=== PATIENT | female | born 1960 | race Caucasian/White ===

== ENCOUNTER → 2024-05-15 | Outpatient (CLI) | payer SELFPAY ==
--- NOTE | 2024-05-15 09:50 | US_ITS ---
PROCEDURE: ULTRASOUND THYROID REASON FOR EXAM: Abnormal parathyroid study. TECHNIQUE: Real-time grayscale and color flow imaging was performed along with routine image documentation. Cine imaging was also performed of the bilateral thyroid lobes. COMPARISON: None. FINDINGS: Right thyroid lobe measures 3.4 x 1.3 x 1.4 cm. Left thyroid lobe measures 3.9 x 1.6 x 1.8 cm. Isthmus thickness is 0.28 cm. Thyroid Size: Normal. Lobulated contour. Background Echotexture: Heterogeneous Thyroid Nodules: Bilateral. Right NODULE: Inferior pole, solid, 0.6 x 0.6 x 0.7 cm, well-circumscribed, hyperechoic, rounded, no calcifications, TR 3. Left NODULE: Inferior pole, mixed cystic and solid, 0.7 x 0.7 x 0.5 cm, well- circumscribed, mixed hypoechoic and anechoic, wider than tall, no calcifications, TR 2. US/Thyroid IMPRESSION: A TR 3 category micronodule in the right inferior pole. No FNA warranted. A TR 2 category micronodule in the left inferior pole. No FNA warranted. A small hypoechoic micronodule inferior to the left thyroid lobe measuring 0.6 cm may represent small lymph node. Follow-up ultrasound recommended in 12 months. Reading Location: [place] [id number]
--- NOTE | 2024-05-15 09:50 | NM_ITS ---
PROCEDURE: PARATHYROID SCAN REASON FOR EXAM: Hypercalcemia. COMPARISON: None. TECHNIQUE: 25 mCi of sestamibi were given intravenously. Imaging of the parathyroid gland was obtained. FINDINGS: Thyroid bed: Activity present Persistent uptake is seen inferior to the left lobe of the thyroid. This may represent a parathyroid adenoma. NM/Parathyroid Scan IMPRESSION: Increased uptake along the inferior aspect of the left lobe of the thyroid. Th is is also present on the delayed imaging suggestive of adenoma. Reading Location: [id number]
== END | disposition home or self-care (01) ==
PROVIDERS: PCP Nurse Practitioner Family; Referring Provider Internal Medicine Endocrinology, Diabetes & Metabolism; Visit Provider Internal Medicine Endocrinology, Diabetes & Metabolism
DX: D35.1 Benign neoplasm of parathyroid gland (principal)
CPT/HCPCS: 76536; 78070; A9500

== ENCOUNTER 2025-01-28 05:44 | Day surgery (SDC) | payer SELFPAY, OTHER ==
[2025-01-28] VITALS (15 sets, daily range): BP systolic 125–160; BP diastolic 70–98; PULSE 56–71; RESP 14–16; TEMP 36.3–36.9; O2SAT 91–100; BMI 27.8
--- OUTSIDE RECORDS SUMMARY | 2025-01-28 05:52 | XMS RPT_ITS | CCD ---
Author Organization [facility] ion [facility] Care Team Providers Care Director Of Parks And Recreation Name Role Phone QUIQUE CARMICHAEL-GABY Lang Unavailable [phone] JO-ANN JEAN Unavailable Unavailable KRISTIAN PURDY, JAQUELINE Vega Unavailable ALEX PURDY, ZULAY Mejias Unavailable [phone] MD Unavailable SHARAD GAUTHIER Unavailable Unavailable Power ANDERS, Dee Unavailable Unavailable SHANIKA LOPES Unavailable Unavailable Unavailable Unavailable GINA HERMAN MD Unavailable GABY WALLACE Unavailable Unav SACHI Álvarez MD Unavailable HEATHER STRE[address] MD Unavailable STACEY ANDERS, ALEJANDRA Unavailable Unavaila ble Quique GAITAN-Gaby Lang Primary Care Provider Gaby Gordon Referring Provider Dr. Gina Herman MD Attending Provider Dr. Gina Herman MD Referring Provider FELICITY DREW Unavailable Dr. Mita Mujica MD Attending Provider Sahci Montoya MD Primary Care Provider Sachi Montoya MD Referring Provider [phone] Mita Mujica MD Attending Physician Sachi Montoya MD Primary Care Physician Gina Herman Attending Unavailable Gina Herman Referring Unavailable Quique CASH ANALYST, Gaby Primary Care Unavailab Amo, [place] Primary Care Unavailable Mita Mujica Attending Unavailable Gina Herman Attending Unavailable Quique CASH ANALYST, Gaby Primary Care Unavailab le [place] CASH ANALYST, Gaby Referring Unavailab le [place], [place] Primary Care Unavailable [place], [place] Referring Unavailable Mita Mujica Attending Unavailable [place], [place] Primary Care Unavailable [place], [place] Referring Unavailable Mita Mujica Attending Unavailable SACHI MONTOYA MD Consulting Unavailable CAYDEN ODEN MD Primary Care Unavailable CAYDEN ODEN MD Attending Unavailable CAYDEN ODEN MD Admitting Unavailable PROVIDER, UNKNOWN Consulting Unavailable PROVIDER, UNKNOWN Consulting Unavailable MITA MUJICA MD Primary Care Unavailable MITA MUJICA MD Attending Unavailable MITA MUJICA MD Admitting Unavailable SACHI MONTOYA MD Consulting Unavailable PROVIDER, UNKNOWN Consulting Unavailable PROVIDER, UNKNOWN Consulting Unavailable HEATHER STREET Primary Care Unavailable HEATHER STREET Attending Unavailable HEATHER STREET Admitting Unavailable GABY OWEN NP Consulting Unavailab le PROVIDER, UNKNOWN Consulting Unavailable PROVIDER, UNKNOWN Consulting Unavailable GINA HERMAN MD Admitting Unavailable GINA HERMAN MD Primary Care Unavailable GINA HERMAN MD Attending Unavailable GABY OWEN CASH ANALYST Consulting Unavailab le PROVIDER, UNKNOWN Consulting Unavailable PROVIDER, UNKNOWN Consulting Unavailable GINA HERMAN MD Admitting Unavailable GINA HERMAN MD Primary Care Unavailable GINA HERMAN MD Attending Unavailable GABY OWEN NP Consulting Unavailab le PROVIDER, UNKNOWN Consulting Unavailable PROVIDER, UNKNOWN Consulting Unavailable GINA HERMAN MD Admitting Unavailable GINA HERMAN MD Primary Care Unavailable GINA HERMAN MD Attending Unavailable GABY OWEN CASH ANALYST Consulting Unavailab le PROVIDER, UNKNOWN Consulting Unavailable PROVIDER, UNKNOWN Consulting Unavailable GINA HERMAN MD Primary Care Unavailable GINA HERMAN MD Attending Unavailable SACHI MONTOYA MD Consulting Unavailable GINA HERMAN MD Admitting Unavailable EMILY MCKINNEY Referring Unavailable PROVIDER, UNKNOWN Consulting Unavailable PROVIDER, UNKNOWN Consulting Unavailable Allergies Allergy Classification Reported Allergen(s) Allergy Type Date of Onset Reaction(s) Facility (10 sources) Amoxicillin Drug Allergy 01-03-2024 Rash [facility] (1 source) Amoxicillin Drug Allergy 01-14-2025 [facility] Repository (1 source) Amoxicillin Drug Allergy [facility] Repository Medications Current Medications Medication Drug Class(es) Dates Sig (Normalized) Sig (Original) amLODIPine mg oral tablet (6 sources) Dihydropyridine Calcium Channel Andi Start: 11-05-2024 amLODIPine 10 mg tablet ; 1/2 (one half) Tablet daily for 180 days Quantity: 90 {Tablet} Refills: 0 Ordered: 05-Nov-2024 MD SACHI MONTOYA Start: 05-Nov-2024 Comments: medication to be dispensed in office Comment on above: medication to be dis pensed in office Multivitamin tablet (3 sources) Start: 02-18-2024 Start: 02-18-2024 Multivitamin t ablet Active 1 {tbl} PO EVERY MORNING February 18, 2024 1:00am redox (1 source) Start: 01-02-2025 sulfurzyme (3 sources) Start: 02-18-2024 Start: 02-18-2024 sulfurzyme Act judith PO February 18, 2024 1:00am wolfberry (3 sources) Start: 02-18-2024 Start: 02-18-2024 wolfberry Acti ve PO February 18, 2024 1:00am young living ninja red (1 source) Start: 01-02-2025 Completed/Discontinued Medications Medication Drug Class(es) Dates Sig (Normalized) Sig (Original) Celspar 360mg (3 sources) Start: 01-03-2024 End: 02-18-2024 take 360 mg by mouth once daily Celspar 360mg Discontinued 1 {tbl} PO DAILY January 03, 2024 12:00am February 18, 2024 9:00am ciprofloxacin 500 mg oral tablet (20 sources) Quinolone Antimicrobial Start: 03-09-2021 End: 03-16-2021 take 1 tablet by mouth twice daily Cipro 500 MG Oral Tablet ; 1 (one) Tablet two times daily for 7 days Quantity: 14 {Tablet} Refills: 0 Ordered: 31-Mar-2021 GORDO OWEN Start: 09-Mar-2021 End: 16-Mar-2021 Status: Inactive estrogens, conjugated (care home) 0.625 mg/ml vaginal cream (20 sources) Estrogen Start: 12-15-2011 End: 04-30-2012 PREMARIN, 0.625MG/GM (Vaginal Cream) ; 1 gm pv for 0 days Quantity: 1 {Cream} Refills: 5 Ordered: 30-Apr-2012 Start: 15-Dec-2011 End: 30-Apr-2012 Status: Inactive Comments: start daily for 1 week then if working decrease to twice a week and gradually wean off over 6 months. Comment on above: start daily for 1 we ek then if working decrease to twice a week and gradually wean off over 6 months. fluconazole 100 mg oral tablet (20 sources) Azole Antifungal Start: 04-30-2012 End: 05-07-2012 take 1 tablet by mouth once daily DIFLUCAN, 100MG (Oral Tablet) ; 1 (one) Tablet daily for 7 days Quantity: 7 {Tablet} Refills: 0 Ordered: 04-Aug-2013 MD ZULAY MUÑOZ Start: 30-Apr-2012 End: 07-May-2012 Status: Inactive Start: 12-15-2011 End: 04-30-2012 take 1 tablet by mouth once DIFLUCAN, 150MG (Oral Tabl et) ; one Tab one time dose for 1 days Quantity: 1 {Tab} Refills: 1 Ordered: 30-Apr-2012 Start: 15-Dec-2011 End: 30-Apr-2012 Status: Inactive hydrocortisone 10 mg/ml / neomycin 3.5 mg/ml / polymyxin b 17388 unt/ml otic suspension (7 sources) Aminoglycoside Antibacterial, Polymyxin-class Antibacterial, Corticosteroid Start: 08-18-2024 End: 08-23-2024 ypsbjqzr-orpvkysdw-dmhrrazsb 3.5 mg-10,000 unit/mL-1 % ear drops,susp ; 4 drops TID x5 days for 5 days Quantity: 10 {Milliliter} Refills: 0 Ordered: 31-Oct-2024 GORDO RODGERS Start: 18-Aug-2024 End: 23-Aug-2024 Status: Inactive nystatin 919284 unt/ml / triamcinolone acetonide 1 mg/ml topical cream (20 sources) Polyene Antifungal, Corticosteroid Start: 04-30-2012 End: 05-07-2012 NYSTATIN-TRIAMCINOLONE, 162790-6.1UNIT/GM-% (External Cream) ; 1 (one) Cream two times daily for 7 days Quantity: 1 {tube(s)} Refills: 0 Ordered: 04-Aug-2013 MD ZULAY MUÑOZ Start: 30-Apr-2012 End: 07-May-2012 Status: Inactive Comments: meds to be dispensed in office Comment on above: meds to be dispensed in office OMEGA 3, 1000MG (Oral Capsule) (20 sources) take 1 capsule by mouth once daily OMEGA 3, 1000MG (Oral Capsule) ; 1 Daily (1000 MG) Status: Inactive polymyxin b 44858 unt/ml / trimethoprim 1 mg/ml ophthalmic solution (20 sources) Dihydrofolate Reductase Inhibitor Antibacterial, Polymyxin-class Antibacterial Start: 02-21-2021 End: 02-28-2021 take 4 drop(s) into the eye(s) four times daily Polymyxin B-Trimethoprim 74482-7.1 UNIT/ML-% Ophthalmic Solution ; 4 drops in affected ear four times daily for 7 days Quantity: 1 {Each} Refills: 0 Ordered: 08-Mar-2021 GORDO OWEN Start: 21-Feb-2021 End: 28-Feb-2021 Status: Inactive Comments: medication to be dispensed in office Comment on above: medication to be dis pensed in office sulfamethoxazole 800 mg / trimethoprim 160 mg oral tablet (20 sources) Dihydrofolate Reductase Inhibitor Antibacterial, Sulfonamide Antimicrobial Start: 05-17-2015 End: 05-27-2015 take 1 tablet by mouth twice daily BACTRIM DS, 800-160MG (Oral Tablet) ; 1 (one) Tablet two times daily for 10 days Quantity: 20 {Tablet} Refills: 0 Ordered: 06-Jun-2016 MD JAQUELINE TOWNSEND Start: 17-May-2015 End: 27-May-2015 Status: Inactive Comments: medication to be dispensed in office Comment on above: medication to be dis pensed in office Problems Active Problems Problem Classification Problem Date Documented Date Episodic/Chronic Administrative/socia l admission (20 sources) Patient encounter status; Translations: [Counseling, unspecified] 04-18-2023 Episodic Essential hypertension (20 sources) Essential hypertension; Translations: [Essential (primary) hypertension] 11-05-2024 Chronic Comment on above: Begin amlodipine, LM discussed Genitourinary symptoms and ill-defined conditions (20 sources) Increased frequency of urination; Translations: [Frequency of micturition] 02-21-2021 Episodic Heart valve disorders (12 sources) Heart murmur; Translations: [Cardiac murmur, unspecified] 11-05-2024 Episodic Immunizations and screening for infectious disease (20 sources) Requires diphtheria, tetanus and pertussis vaccination; Translations: [Encounter for immunization] 08-22-2011 Episodic Inflammatory diseases of female pelvic organs (20 sources) Vaginitis; Translations: [Acute vaginitis] 12-15-2011 Episodic Mycoses (20 sources) Otomycosis; Translations: [Superficial mycosis, unspecified] 03-09-2021 Episodic Nonmalignant breast conditions (20 sources) Abscess of breast; Translations: [Abscess of the breast and nipple] 04-18-2023 Episodic Nutritional deficiencies (20 sources) Vitamin D deficiency; Translations: [Vitamin D deficiency, unspecified] 04-18-2024 Chronic Other and unspecified benign neoplasm (1 source) Benign neoplasm of parathyroid gland; Translations: [Benign neoplasm of parathyroid gland] Onset: Episodic Other circulatory disease (20 sources) Elevated blood-pressure reading without diagnosis of hypertension; Translations: [Elevated blood-pressure reading, without diagnosis of hypertension] 02-21-2021 Episodic Other ear and sense organ disorders (14 sources) Impacted cerumen in right ear; Translations: [Impacted cerumen, right ear] 08-18-2024 Episodic Other endocrine disorders (20 sources) Hyperparathyroidism; Translations: [Hyperparathyroidism, unspecified] 03-17-2024 Chronic Comment on above: Seeing endo Other endocrine disorders (3 sources) Primary hyperparathyroidism; Translations: [Primary hyperparathyroidism] 01-02-2025 Chronic Comment on above: Patient is 63-year-o ld female who presents for surgical consultation related to a diagnosis of primary hyperparathyroidism. After careful review of her outside records and eliciting a thorough history during today's visit I concur with the diagnosis of primary hyperparathyroidism. Through her history it appears she is virtually asymptomatic from this condition. She is reporting some depression, but appears to have a more proximal cause through her social stressors. When I assess her for surgical indications given asymptomatic primary hyperparathyroidism I find only 1 calcium level that fulfills criteria of being 1 mg/dL or more over the range of normal. She has no evidence of bone demineralization or kidney stones. Initially, her urinary calcium was not available to me but outside records were later uncovered that showed this to be elevated at 477. Therefore, given this very borderline picture I recommended repeating the 24-hour urine calcium and if this remains significantly elevated would likely recommend proceeding with parathyroidectomy. However, if this is repeated and found to be within normal limits would likely recommend additional surveillance. Mr. Gauthier declares they would like to avoid surgery if at all possible, but are willing to proceed if indicated. Positively, if we do elect to proceed with surgery patient appears to have not only localization but Co- localization of her ultrasound and sestamibi imaging which suggest a left inferior parathyroid adenoma.Update 01/02/2025: Discussed results of recent 24-hour urinary calcium testing that returned 507 up from 477 previously. I stated that this result taken together with her history of hypercalcemia places her squarely in the position to recommend surgical parathyroidectomy. I stated that my intent was to help mitigate Mrs. Gauthier's risk for nephrolithiasis as well as pathologic wear/demineralization of her skeletal mass over time. A hand-drawn schematic was used to illustrate the steps of the procedure including a explanation on the use of intraoperative PTH monitoring to verify cure. I also explained how this has implications for the extent and duration of the procedure if the PTH does not come down appropriately to meet criteria. I shared how this could have implications both for patient's postoperative disposition as well as her need for postoperative medication. I then immediately followed this with a discussion of procedure specific risks including discussions on hypoparathyroidism and recurrent laryngeal nerve injury. I shared about my routine use of intraoperative nerve monitoring to minimize the risk of the latter issue. Patient's is more vocal than patient but she also verbally provided her agreement to proceed as recommended. Other endocrine disorders (1 source) Hyperparathyroidism, unspecified; Translations: [Hyperparathyroidism, unspecified] Onset: 5 Chronic Other female genital disorders (20 sources) Cyst of cervix; Translations: [Other specified noninflammatory disorders of cervix uteri] 04-18-2023 Episodic Other nutritional; endocrine; and metabolic disorders (20 sources) Hypercalcemia; Translations: [Hypercalcemia] 04-19-2023 Chronic Other nutritional; endocrine; and metabolic disorders (1 source) Hypercalcemia; Translations: [Hypercalcemia] Onset: 4 Chronic Other screening for suspected conditions (not mental disorders or infectious disease) (20 sources) Cancer cervix screening status; Translations: [Encounter for screening for malignant neoplasm of cervix] Onset: 04-18-2023 Episodic Other skin disorders (20 sources) Unspecified hypertrophic and atrophic conditions of skin 02-21-2021 Episodic Other upper respiratory infections (20 sources) Acute upper respiratory infection; Translations: [Acute upper respiratory infection, unspecified] 02-21-2021 Episodic Residual codes; unclassified (20 sources) Mammogram declined; Translations: [Procedure and treatment not carried out because of patient's decision for unspecified reasons] 03-18-2024 Episodic Unclassified (20 sources) LAB DRAW - The labs drawn today include: EXECUTIVE PROFILE. The lab was drawn from the left antecubital vein. The lab was ordered by Dr. Mñuoz. 09-16-2011 Unclassified (20 sources) LAB DRAW - The labs drawn today include: BMP. The lab was drawn from the left antecubital vein. The lab was ordered by Gaby CARMICHAEL-Precious. 05-16-2023 Unclassified (20 sources) LAB DRAW - The labs drawn today include: other: PTH, intact. The lab was drawn from the left antecubital vein. The lab was ordered by Gaby CARMICHAEL-Lucita 05-21-2023 Unclassified (12 sources) LAB DRAW - The labs drawn today include: Vitamin D, 25 Hydroxy and other: Calcium, Total and PTH IN. The lab was drawn from the left antecubital vein. The lab was ordered by ___ (Dr. Gina Herman). fax #: [phone]. 04-18-2024 Urinary tract infections (20 sources) Acute lower urinary tract infection; Translations: [Urinary tract infection, site not specified] 02-21-2021 Episodic Past or Other Problems Problem Classification Problem Date Documented Date Episodic/Chronic Headache; including migraine (20 sources) Headache; including migraine 04-30-2012 Mood disorders (6 sources) Mood disorders 11-05-2024 Unclassified (20 sources) Physical examination - The patient is here for a annual physical. Note for "Physical examination": Pt noticed a lump in her left armpit about a month ago. Not painful, but has gotten bigger. 04-18-2023 Unclassified (20 sources) Ear blocked - The blocked ear has been occurring for 2 months. It affects the right ear . There has been associated decreased hearing, while there has been no fever. 02-21-2021 Unclassified (20 sources) Urinary frequency - The onset of the urinary frequency has been acute and has been occurring for 1 week. The symptoms have been associated with dysuria, while the symptoms have not been associated with chills, fever or flank pain. 05-17-2015 Unclassified (20 sources) Rash - The rash has been occurring for 3 weeks. There has been associated itching. Note for "Rash": C/o itching under both armpits. 04-30-2012 Unclassified (20 sources) Vaginal Itching - Symptoms include vaginal itching and vaginal discharge. Onset was 2 week(s) ago. 12-15-2011 Unclassified (20 sources) !Patient notification of lab results 1 - Dr. Muñoz. The test(s) that you had done were/was a CBC (checks for anemia and infection), a CMP (kidneys, liver, nutrition, sugar), a lipid panel (cholesterol and triglycerides) and a TSH (thyroid). The results of your testing were normal for age . Please note that we have included copies of your results and follow up as scheduled. 09-18-2011 Unclassified (20 sources) !Patient notification of lab results 1 - Dr. Muñoz. The test(s) that you had done were/was a pap test (screen for cervical cancer). The results of your testing were normal . 08-23-2011 Unclassified (20 sources) Physical examination - The patient is here for a annual physical. The patinet denies tobacco use.Her last menstrual period date was 08/08/2011. 08-22-2011 Unclassified (20 sources) !Patient notification of lab results - GORDO Mckeon. The test(s) that you had done were/was a pap test (screen for cervical cancer). The results of your testing were normal for age . You should call our office if you have any questions. Please follow up as scheduled. Note for !Patient notification of lab results ": Your pap test showed normal age related changes. Thanks! 04-27-2023 Unclassified (20 sources) !Patient notification of lab results - GORDO Mckeon. The test(s) that you had done were/was blood work. Your tests were not to goal You should call our office to schedule an appointment for additional testing and if you have any questions. Please follow up as scheduled. Note for !Patient notification of lab results ": Your calcium has gone up. We need to do further testing. Please call to set this up. Thanks! 05-17-2023 Unclassified (5 sources) [ADDITIONAL REASON] Rash - The rash has been occurring for 3 weeks. There has been associated itching. Note for "Rash": C/o itching under both armpits. 04-30-2012 Unclassified (20 sources) !Patient notification of lab results - GORDO Mckeon. The test(s) that you had done were/was blood work. Your tests were not to goal You should call our office to schedule a referral and if you have any questions. Note for "!Patient notification of lab results ": This needs further evaluation by a specialist. Please let us know if you are willing to see someone. Thanks! 05-23-2023 Unclassified (15 sources) Hyperparathyroidism, Secondary - Note for Secondary hyperparathyroidism": Labwork ordered by endo. Elevated CA and Vit D. Pt following up here. Stopped all supplements 2 weeks ago as instructed by endo. 03-17-2024 Unclassified (7 sources) Ear blocked - The onset of the blocked ear has been acute and has been occurring in an intermittent pattern for 1 month. The course has been recurrent. It is moderate. The blocked ear is characterized as fullness. It affects the right ear . There has been associated decreased hearing, while there has been no ear discharge, fever, nasal congestion, purulent discharge from ear, sinus problems or sore throat. 08-18-2024 Unclassified (4 sources) elevated blood pressure - 0 chest pain, 0 SOB, 0 Edema. Went to dentist last week, and blood pressure was high, and suggested that she see family doctor. 11-05-2024 Unclassified (5 sources) !Patient notification of lab results - Dr. Montoya. The test(s) that you had done were/was a BMP (potassium, sodium, sugar, and kidney function). Your tests showed the following abnormalities: the calcium is still elevated. I recommend treatment for the hyperparathyroidism as advised by the golf club maker . Note for !Patient notification of lab results ": Thank you, Dr. Montoya 11-07-2024 Unclassified (2 sources) [ADDITIONAL REASON] elevated blood pressure - 0 chest pain, 0 SOB, 0 Edema. Went to dentist last week, and blood pressure was high, and suggested that she see family doctor. 11-05-2024 Results Test Name Value Interpretation Reference Range Facility Surgery Visit Reporton 01-02 Surgery Visit Report [facility] [address] [place] [address] OFFICE VISIT Date of Service: 01/02/25 MR#: [id number] Acct: [id number] Name: KAERN GAUTHIER Rep #: [id number] : [id number] Provider: Dr. Mita mccormick MD Age/Sex: 64/F Location: [facility] Status: Signed Intake Vital Signs 11/21/24 10:08 01/02/25 14:06 Height 5 ft 2 in Weight: 153 lb 153 lb BMI 28.0 BP 127/81 H 135/85 H Blood Pressure Location Rt brachial Rt brachial Position Sitting Sitting Respiration 17 17 Pulse 60 83 Pulse Source Monitor Monitor Pulse Oximetry (%) 98 96 Oxygen Delivery Method room air room air Intake Visit Reasons: discuss parathyroidectomy Chief Complaint: discuss parathyroidectomy Is patient in pain?: No Allergies amoxicillin Allergy (Intermediate, Verified 01/02/25 14:07) Rash Medications ???Medication ???Instructions ???Recorded ???Confirmed ???Type multivitamin 1 tab PO QAM 02/18/24 01/02/25 His tory sulfurzyme PO 02/18/24 01/02/25 History wolfberry PO 02/18/24 01/02/25 History redox PO 01/02/25 01/02/25 History young living ninja red PO 01/02/25 History Have you fallen in the past year?: No PFSH Medical History Hyperparathyroidism Otitis externa, fungal, right ear Family History (Updated 11/21/24 @ 10:08 by Saige Neville) Mother Hypertension Sister Breast cancer Hypertension Social History Smoking Status: Never smoker Electronic Cigarette Use: not used second hand exposure: No alcohol intake: never substance use type: does not use HPI HPI HPI: Patient is now a 64-year-old female who presents for further evaluation of her primary hyperparathyroidism. She was last seen 11/21/2024. She again is accompanied by her . They deny any health changes since her last visit. They state they were not made aware of the results for her recently completed 24-hour urine calcium testing that resulted 12/12/2024. Below is recapitulated from patient's prior visit for ease of review: Patient is a 63-year-old female who presents for evaluation of hyperparathyroidism. They are referred from PCP, Dr. Montoya and endocrinology, Dr. Herman. Patient presents to clinic today with her . Together they provide the history. They state that this evaluation began with finding of high calcium over a year ago (estimated 15 months ago). Patient has no history of osteopenia or osteoporosis with normal Z-score reported on bone densitometry from 02/26/2024. Patient has no history of pathologic fractures. Patient has no history of kidney stones. Patient has no history of frequent dental caries or chipped teeth. Patient has no history of brittle fingernails. Patient has no history of GERD. Patient has no history of hypertension. Additional symptoms include: Some forgetfulness, depression, and constipation (patient notes that depression is largely condition by caring for aging parents and constipation has been chronic and nonprogressive). Patient has no history of prior radiation exposure. Patient has no family history of other endocrinopathies Patient does not have a diet high in dairy. Patient's current labs are calcium: 10.9 mg/dL (11/05/2024) personal range: 10.7-11.3 with normal range of assay 8.7 to 10.3 mg/dL, Vitamin D: 63 ng/mL 04/21/2024, Ionized calcium: [Value]mg/dL [date], PTH: 162 pg/mL 08/06/2024 with personal range 100-162, Phosphorus: [Value] [date] Current medications include: No calcium supplementation. Imaging has been done thyroid ultrasound and DEXA imaging both completed 05/15/2024. Thyroid ultrasound showed evidence of bilateral subcentimeter thyroid nodules as well as a 0.6 cm hypoechoic area posterior to the left inferior pole. System may be was positive for a suspected adenoma of the left inferior position. Patient has not had renal imaging, however, she did have a urinary calcium of 477 milligrams per 24 hours which was obtained 02/26/2024. ROS General General: No weight change, appetite, fatigue, colon cancer, breast cancer or weakness HEENT HEENT: No difficulty swallowing, eye injury, eye surgery, swollen glands or hoarseness Endo Endocrine: Yes thyroid disease and Hair loss; No diabetes mellitus, thyroid cancer, heat intolerance or cold intolerance Skin Skin: No rash or changing moles Musc Musculoskeletal: No back problems, arthritis, rheumatoid arthritis, gout or joint pain Cardio Cardiovascular: No murmur, pacemaker, heart disease, atrial fibrillation, high blood pressure, heart attack, heart stent, palpitations, shortness of breath with exertion or chest pain Psych Psychiatric: No depression, anxiety or hearing voices Resp Respiratory: No (more content not included)... Normal [facility] CALCIUM, URINE 24 HOUR [CCL] on 12-13-2024 Calcium, Urine 24 Hr 507.0 mg/24 hr High 100.0-300.0 [facility] Comment on above: Performed By: #### 2 [id number] #### [facility],[address] [place] [address] Period (HRS) 24 hr Normal [facility] Comment on above: Performed By: #### 2 [id number] #### [facility],[address] [place] [address] 68063 Volume (ML) 2600 mL Normal [facility] Comment on above: Result Comment: [place] [address] Mu Melo III, M.D. [id number] Performed By: #### 2 70220 #### [facility],[address] [place], [place] [id number] No Panel Informationon 12-12 Calcium, Urine 24 Hr 507.0 {mg/24_hr} Abnormal 100.0 - 300.0 {mg/24_hr} [employer] Work Phone: Period (HRS) 24 {hr} Normal [employer]; [employer] Work Phone: Volume (ML) 2600 mL Normal [place] [employer] [facility].; [place] [facility] [employer] [facility] [facility]. Work Phone: Surgery Visit Reporton 11-21 Surgery Visit Report [facility] [address] [place] [address] OFFICE VISIT Date of Service: 11/21/24 MR#: [id number] Acct: [id number] Name: KAREN GAUTHIER Rep #: [id number] : 1960 Provider: Dr. Mita mccormick MD Age/Sex: 63/F Location: [facility] Status: Signed Intake Vital Signs 02/18/24 07:56 11/21/24 10:08 Height 5 ft 2 in 5 ft 2 in Weight: 151 lb 8 oz 153 lb BMI 27.7 28.0 BP 156/86 H 127/81 H Blood Pressure Location Rt brachial Rt brachial Position Sitting Sitting Respiration 17 Pulse 66 60 Pulse Source Monitor Monitor Pulse Oximetry (%) 98 98 Oxygen Delivery Method room air room air Intake Visit Reasons: PARATHYROID- SELF PAY Chief Complaint: Hyperparathyroidism/hyp ercalcemia Is patient in pain?: No Allergies amoxicillin Allergy (Intermediate, Verified 11/21/24 10:10) Rash Medications ???Medication ???Instructions ???Recorded ???Confirmed ???Type multivitamin 1 tab PO QAM 02/18/24 11/21/24 His tory sulfurzyme PO 02/18/24 11/21/24 History wolfberry PO 02/18/24 11/21/24 History PFSH Medical History (Updated 11/21/24 @ 11:[address] Mita Mujica MD) Hyperparathyroidism Otitis externa, fungal, right ear Family History (Updated 11/21/24 @ 10:08 by Saige Neville) Mother Hypertension Sister Breast cancer Hypertension Social History Smoking Status: Never smoker Electronic Cigarette Use: not used second hand exposure: No alcohol intake: never substance use type: does not use HPI HPI HPI: Patient is a 63-year-old female who presents for evaluation of hyperparathyroidism. They are referred from PCP, Dr. Montoya and endocrinology, Dr. Herman. Patient presents to clinic today with her . Together they provide the history. They state that this evaluation began with finding of high calcium over a year ago (estimated 15 months ago). Patient has no history of osteopenia or osteoporosis with normal Z-score reported on bone densitometry from 02/26/2024. Patient has no history of pathologic fractures. Patient has no history of kidney stones. Patient has no history of frequent dental caries or chipped teeth. Patient has no history of brittle fingernails. Patient has no history of GERD. Patient has no history of hypertension. Additional symptoms include: Some forgetfulness, depression, and constipation (patient notes that depression is largely condition by caring for aging parents and constipation has been chronic and nonprogressive). Patient has no history of prior radiation exposure. Patient has no family history of other endocrinopathies Patient does not have a diet high in dairy. Patient's current labs are calcium: 10.9 mg/dL (11/05/2024) personal range: 10.7-11.3 with normal range of assay 8.7 to 10.3 mg/dL, Vitamin D: 63 ng/mL 04/21/2024, Ionized calcium: [Value]mg/dL [date], PTH: 162 pg/mL 08/06/2024 with personal range 100-162, Phosphorus: [Value] [date] Current medications include: No calcium supplementation. Imaging has been done thyroid ultrasound and DEXA imaging both completed 05/15/2024. Thyroid ultrasound showed evidence of bilateral subcentimeter thyroid nodules as well as a 0.6 cm hypoechoic area posterior to the left inferior pole. System may be was positive for a suspected adenoma of the left inferior position. Patient has not had renal imaging, however, she did have a urinary calcium of 477 milligrams per 24 hours which was obtained 02/26/2024. ROS General General: No weight change, appetite, fatigue, colon cancer, breast cancer or weakness HEENT HEENT: No difficulty swallowing, eye injury, eye surgery, swollen glands or hoarseness Endo Endocrine: Yes thyroid disease and Hair loss; No diabetes mellitus, thyroid cancer, heat intolerance or cold intolerance Skin Skin: No rash or changing moles Musc Musculoskeletal: No back problems, arthritis, rheumatoid arthritis, gout or joint pain Cardio Cardiovascular: No murmur, pacemaker, heart disease, atrial fibrillation, high blood pressure, heart attack, heart stent, palpitations, shortness of breath with exertion or chest pain Psych Psychiatric: No depression, anxiety or hearing voices Resp Respiratory: No shortness of breath, No sleep apnea, No cough, No COPD, No asthma, No emphysema and No wheezing Gastro Gastrointestinal: No abdominal pain, No nausea or vomiting, No diarrhea, No constipation, No blood in stool, No acid reflux, No hemorrhoids, No ulcers, No gallbladder problem and No black,tarry stools Sachin Hematologic: No blood thinners, No blood disorders, No bleeding, No anemia and No blood clots Neuro Neurologic: No system reviewed and no additional complaints, except as documented, No as per HPI, No abnormal ga (more content not included)... Normal [facility] Laboratory - Chemistry and C hemistry - challengeon 11-05-2024 Calcium [Mass/Vol] 10.9 mg/dL Abnormal 8.7 - 10. 3 mg/dL [facility]; [place] [employer] [facility] Work Phone: Chloride [Moles/Vol] 109 mmol/L Abnormal 96 - 106 mmol/L [facility]; [facility] [employer] [facility] [employer] [facility] Work Phone: CO2 [Moles/Vol] 19 mmol/L Abnormal 20 - 29 mmol/L [facility]; [facility] [employer] [facility] Work Phone: Creatinine [Mass/Vol] 0.71 mg/dL Normal 0.57 - 1.00 mg/dL [facility] [employer] [facility]; [facility] [employer] [facility] [employer] [facility] Work Phone: GFR/1.73 sq M.predicted among non-blacks MDRD (S/P/Bld) [Vol rate/Area] 95 mL/min/{1.73_m2} Normal [facility]; [employer] [facility] [employer] [facility] Work Phone: Glucose [Mass/Vol] 102 mg/dL Abnormal 70 - 99 mg/dL [employer] [facility]; [facility] Work Phone: Potassium [Moles/Vol] 4.0 mmol/L Normal 3.5 - 5.2 mmol/L [facility]; [facility] Work Phone: Sodium [Moles/Vol] 141 mmol/L Normal 134 - 144 mmol/L [facility]; [facility] Work Phone: TSH Qn 1.750 {uIU/mL} Normal 0.450 - 4.500 {uIU/mL} [facility]; [facility] Work Phone: Urea nitrogen [Mass/Vol] 10 mg/dL Normal 8 - 27 mg/dL [facility]; [facility] Work Phone: Urea nitrogen/Creatinine [Mass ratio] 14 mg/mg Normal 12 - 28 [facility]; [facility] Work Phone: PTH, INTACT [CCL]on 08-09-19 25 PTH, Intact 162 pg/mL High 15-65 [facility] Comment on above: Result Comment: [facility] [place] [address] [place] [address] Mu Melo III, M.D. [id number] Performed By: #### 2 90735 #### [place] [id number] CMP with eGFRon 08-06-2024 AGE 63 years Normal [facility] Comment on above: Performed By: #### 2 [id number] #### [place] [id number] Albumin [Mass/Vol] 4.0 g/dL Normal 3.4 - 5.0 [facility], [employer] [facility] Work Phone: Comment on above: Performed By: #### 2 76632 #### [facility],[address] [place] [address] Albumin/Globulin [Mass ratio] 1.3 {ratio} Normal 0.9 - 1.6 [facility] Comment on above: Performed By: #### 2 77531 #### [facility],[address] [place], [place] [id number] ALK PHOS 155 U/L High 46 - 116 [facility].; [facility], [employer]. Work Phone: Comment on above: Performed By: #### 2 91848 #### [place] [phone] ALT [Catalytic activity/Vol] 30 U/L Normal 16 - 63 [facility].; [facility], [employer]. Work Phone: Comment on above: Performed By: #### 2 34313 #### [place] [id number] Anion gap [Moles/Vol] 11 mmol/L Normal 10 - 20 [facility], [facility].; [facility] Work Phone: Comment on above: Performed By: #### 2 28938 #### [address] [address] AST [Catalytic activity/Vol] 19 U/L Normal 13 - 39 [facility], [facility].; [facility] Work Phone: Comment on above: Performed By: #### 2 42028 #### [facility],[address] [place] [address] 45762 B/C RATIO 11 ratio Normal 0 - 30 [facility] Comment on above: Performed By: #### 2 10734 #### [facility],[address] [place] [address]04 Bilirubin [Mass/Vol] 0.8 mg/dL Normal 0.2 - 1.0 [facility].; [facility] Work Phone: Comment on above: Performed By: #### 2 31080 #### [facility],[address] [place] [address] Calcium [Mass/Vol] 11.0 mg/dL High 8.5 - 10.1 [facility].; [facility] Work Phone: Comment on above: Performed By: #### 2 81321 #### [facility],[address] [place] [address] Chloride [Moles/Vol] 106 mmol/L Normal 98 - 107 [facility] CenterRem[facility]; [facility]. Work Phone: Comment on above: Performed By: #### 2 59746 #### [facility],[address] [place] [address] CMP with eGFR Normal [facility] Comment on above: Result Comment: COMP REHENSIVE METABOLIC PANEL Performed By: #### 2 57927 #### [facility],[address] [place] [address] CO2 [Moles/Vol] 27.3 mmol/L Normal 21.0 - 32.0 [facility], [facility].; [facility]. Work Phone: Comment on above: Performed By: #### 2 53901 #### [facility],[address] [place] [address] Creatinine [Mass/Vol] 0.62 mg/dL Normal 0.55 - 1.02 [facility].; [facility] [employer] [facility]. Work Phone: Comment on above: Performed By: #### 2 81853 #### [facility],[address] [place] [address] GFR/1.73 sq M.predicted among non-blacks MDRD (S/P/Bld) [Vol rate/Area] mL/min/{1.73_m2} Normal 60 - 999 [facility] Comment on above: Performed By: #### 2 55428 #### [facility],[address] [place] [address] Result Comment: ACCO RDING TO THE NATIONAL KIDNEY DISEASE EDUCATION PROGRAM(NKDE), A NORMAL eGFR IS A VALUE GREATER THAN OR EQUAL TO 60 ML/MIN/1.73 SQ METERS. CHRONIC KIDNEY DISEASE: <60mL/MIN/1.73 SQ METERS KIDNEY FAILURE: <15mL/MIN/1.73 SQ METERS THIS TEST SHOULD ONLY BE USED FOR PATIENTS 18 YEARS OF AGE AND OLDER. Globulin (S) [Mass/Vol] 3.2 g/dL Normal 1.5 - 3.8 [facility].; [facility] [employer] [facility]. Work Phone: Comment on above: Performed By: #### 2 84356 #### [facility],[address] [place] [address] Glucose [Mass/Vol] 85 mg/dL Normal 74 - 106 [facility].; [facility] [employer] [facility]. Work Phone: Comment on above: Performed By: #### 2 82304 #### [facility],[address] [place] [address] Potassium [Moles/Vol] 3.8 mmol/L Normal 3.5 - 5.1 [facility].; [facility]. Work Phone: Comment on above: Performed By: #### 2 05350 #### [facility],[address] [place] [address]703 Protein [Mass/Vol] 7.2 g/dL Normal 6.4 - 8.2 [facility], [facility].; [facility] Work Phone: Comment on above: Performed By: #### 2 89615 #### [address] [address] Sodium [Moles/Vol] 140 mmol/L Normal 136 - 145 [facility], [facility].; [facility] Work Phone: Comment on above: Performed By: #### 2 06039 #### [address] [address] Urea nitrogen [Mass/Vol] 7 mg/dL Normal 7 - 18 [facility].; [facility] Work Phone: Comment on above: Performed By: #### 2 70027 #### [address] [address] Laboratory - Chemistry and C hemistry - challengeon 08-06-2024 25-hydroxyvitamin D3 [Mass/Vol] 83.80 ng/mL Normal 30.00 - 100 ng/mL [facility].; [facility] Work Phone: Albumin [Mass/Vol] 1.3 g/dL Normal 0.9 - 1.6 [facility], [facility].; [facility] Work Phone: GFR/1.73 sq M.predicted among blacks MDRD (S/P/Bld) [Vol rate/Area] mL/min/{1.73_m2} Normal 60 - 999 {ML/MINUTE} [facility].; [facility]First[facility] [employer] [facility] [employer] [facility]. Work Phone: GFR/1.73 sq M.predicted MDRD (S/P/Bld) [Vol rate/Area] mL/min/{1.73_m2} Normal 60 - 999 {ML/MINUTE} [facility].; [email or web address] [facility]. Work Phone: Urea nitrogen/Creatinine [Mass ratio] 11 {ratio} Normal 0 - 30 {ratio} [facility] [employer] [facility].; [email or web address] [facility] [employer] [facility]. Work Phone: No Panel Informationon 08-06 AGE 63 {years} Normal [facility] [employer] [facility] [facility].; [email or web address] [facility] [employer] [facility]. Work Phone: CMP with eGFR Normal [facility]; [email or web address] [facility] [employer] [facility]. Work Phone: PTH, Intact 162 pg/mL Abnormal 15 - 65 pg/mL [facility]; [email or web address] [facility] [employer] [facility]. Work Phone: VITAMIN D, 25 HYDROXYon 05- VitD 83.80 ng/mL Normal 30.00 - 100 [facility] Comment on above: Result Comment: 25-O HD3 indicates both endogenous production and supplementation. 25-OHD2 is an indicator of exogenous sources, such as diet or supplementation. Therapy is based on measurement of Total 25-OHD, with levels <20 ng/mL indicative of Vitamin D deficiency, while levels between 20 ng/mL and 30 ng/mL suggest insufficiency. Optimal levels are >=30ng/mL. Vitamin D, 25-OH D3 Not Established Vitamin D, 25-OH D2 Not Established Performed By: #### 2 [id number] #### [facility],[address] [place] [address] OPERATIVE PROCEDURESon 06-11 OPERATIVE PROCEDURES [facility] OPERATIVE REPORT NAME ACCOUNT SEX AGE ADMIT DISCHARGE PT MED. RECORD# NUMBER DATE DATE TYPE STACEY, [id number] F 63 06/11/24 2 KAREN Montemayor [id number] ROOM: [facility] DATE OF : 1960 DICTATING PHYSICIAN: Heather Street DATE OF SURGERY: June 11, 2024 SURGEON: Heather Street MD FILLING STATION ATTENDANT: ANESTHESIOLOGIST: Neal Patel CRNA ANESTHETIC: PREOPERATIVE DIAGNOSIS: POSTOPERATIVE DIAGNOSES: 1. Screening colonoscopy. 2. Hemorrhoids. OPERATION PERFORMED: Screening colonoscopy. COMPLICATIONS: ESTIMATED BLOOD LOSS: None. SPECIMEN: None. DISPOSITION: Stable to recovery. INDICATIONS: Karen Gauthier is a 63-year-old female who presents for screening endoscopy. DESCRIPTION OF OPERATION: After informed consent and intravenous fluids, she had been brought to the Endoscopy Suite and placed on a padded gurney in left lateral decubitus position with adequate padding at pressure points, and time-out and verification had been done. The patient was given sedation per Anesthesia with monitoring throughout. She was examined in the left lateral decubitus position and digital examination showed small external hemorrhoidal tags, normal tone, and no discrete mass. The Olympus [id number] flexible colonoscope was introduced Page 1 of 2 STACEY, Operative Report KAREN GAUTHIER : 1960 through the anal verge and carefully advanced protecting the surrounding mucosa. The scope was advanced through the rectal vault and then through the sigmoid colon, which was rather tortuous. The scope was advanced through the descending colon, beyond the splenic flexure, transverse colon, hepatic flexure, ascending colon toward the ileocecal junction and the landmarks were noted and documented. The scope was carefully rotated with irrigation and suctioning and back and forth movement and withdrawn with irrigation and suctioning and decompression as needed. The ascending, transverse, descending, and sigmoid colon were all carefully viewed. The scope was withdrawn into the rectal vault, retroflexed, rotated, straightened out, and withdrawn with decompression. There is no tear, no fissure, no fungating mass, and no angiodysplasia. No polyps were seen. No biopsies were taken. The patient can have repeat endoscopy in 10 years unless she has other risk factors, in which case, she would need to return sooner. She will be informed of the findings when she is more awake and alert. I did discuss the findings with her spouse, who is present. Dictated By: Heather Street MD 06/11/24 12:49 JOB #: [id number] Transcribed By: am 06/11/24 14:08 Electronically signed by: E-Sign Dr. Heather Street MD 06/11/24 15:20 Page 2 of 2 STACEY, Operative Report KAREN Montemayor Normal [facility] Parathyroid Scanon Parathyroid scan [facility] [address] [place], [place] [address] Parathyroid Scan MR#: [id number] Acct: [id number] Name: KAREN GAUTHIER Rep #: [id number] : 1960 F 63 From: Max valentine MD PCP: DARCI Mckeon Status: REG CLI Study: Parathyroid Scan Date of Exam: 05/15/24 Exam# [id number] Ordering Dr: iGna Herman MD PROCEDURE: PARATHYROID SCAN REASON FOR EXAM: Hypercalcemia. COMPARISON: None. TECHNIQUE: 25 mCi of sestamibi were given intravenously. Imaging of the parathyroid gland was obtained. FINDINGS: Thyroid bed: Activity present Persistent uptake is seen inferior to the left lobe of the thyroid. This may represent a parathyroid adenoma. NM/Parathyroid Scan IMPRESSION: Increased uptake along the inferior aspect of the left lobe of the thyroid. This is also present on the delayed imaging suggestive of adenoma. Reading Location: [place] CC: CASH ANALYST-C Gaby Owen; Dr. Gina Herman MD Sheep Killer: Signed Normal [facility] Thyroidon 05-15-2024 Thyroid [facility] Imaging Services [address] [place], [place] [id number] Thyroid MR#: [id number] Acct: [id number] Name: KAREN GAUTHIER Rep #: [id number] : 1960 F 63 From: Chuckie Bailey MD PCP: DARCI Mckeon Status: REG CLI Study: Thyroid Date of Exam: 05/15/24 Exam# [id number] Ordering Dr: Gina Herman MD PROCEDURE: ULTRASOUND THYROID REASON FOR EXAM: Abnormal parathyroid study. TECHNIQUE: Real-time grayscale and color flow imaging was performed along with routine image documentation. Cine imaging was also performed of the bilateral thyroid lobes. COMPARISON: None. FINDINGS: Right thyroid lobe measures 3.4 x 1.3 x 1.4 cm. Left thyroid lobe measures 3.9 x 1.6 x 1.8 cm. Isthmus thickness is 0.28 cm. Thyroid Size: Normal. Lobulated contour. Background Echotexture: Heterogeneous Thyroid Nodules: Bilateral. Right NODULE: Inferior pole, solid, 0.6 x 0.6 x 0.7 cm, well-circumscribed, hyperechoic, rounded, no calcifications, TR 3. Left NODULE: Inferior pole, mixed cystic and solid, 0.7 x 0.7 x 0.5 cm, well-circumscribed, mixed hypoechoic and anechoic, wider than tall, no calcifications, TR 2. US/Thyroid IMPRESSION: A TR 3 category micronodule in the right inferior pole. No FNA warranted. A TR 2 category micronodule in the left inferior pole. No FNA warranted. A small hypoechoic micronodule inferior to the left thyroid lobe measuring 0.6 cm may represent small lymph node. Follow-up ultrasound recommended in 12 months. Reading Location: [place] [address] CC: DARCI Owen; Dr. Gina Herman MD Sheep Killer: Signed Normal [facility] Laboratory - Chemistry and C hemistry - challengeon 04-18-2024 25-hydroxyvitamin D [Mass/Vol] 62.0 ng/mL Normal 30.0 - 100.0 ng/mL [facility], [facility].; [facility] Calcium [Mass/Vol] 10.7 mg/dL Abnormal 8.7 - 10. 3 mg/dL [facility], [facility].; [facility] Parathyrin.intact [Mass/Vol] 111 pg/mL Abnormal 15 - 65 pg/mL [facility], [facility] BONE DENSITY STUDYon 024 Bone density scan [place] [address] Patient: KAREN GAUTHIER Phone#: : 1960 Age: 63 Gender: F Pt. Type: Out Account: [id number] Location: Ordering: DR. GINA HERMAN Exam Date: 02/26/2024/11:46 Family Phys: GABY OWEN Charge Code: [id number] Physician: [place] Order #: [id number] Dose#: PROCEDURE: BONE DENSITY STUDY TECHNIQUE: Lumbar vertebral and proximal femoral dual-energy X-ray absorptiometry (DXA) was performed on a central [employer] device. SPINE ANALYSIS RESULTS: Average lumbar bone mineral density (BMD) (g/cm2): 0.986 Lumbar T-score (standard deviation relative to young adult mean BMD): -1.6 Lumbar Z-score (standard deviation relative to age matched control group): -0.2 SPINE CLASSIFICATION: Osteopenia (T-score -1.0 to -2.5). HIP ANALYSIS RESULTS: Left femoral bone mineral density (BMD) (g/cm2): 0.918 Right femoral bone mineral density (BMD) (g/cm2): 0.926 Femur T-score (standard deviation relative to young adult mean BMD): -0.7 Femur Z-score (standard deviation relative to age matched control group): 0.4 HIP CLASSIFICATION (World Health Organization): Normal (T-score > -1.0). Note: The 2007 International Society for Clinical Densitometry (ISCD) Official Positions state that osteoporosis in purvi-menopausal and post-menopausal women and in men age 50 and older may be diagnosed if the T-score of the lumbar spine, total hip, or femoral neck is -2.5 or less. Hip BMD is reported from the femoral neck or total proximal femur whichever is lowest. In pre-menopausal women and in men younger than age 50, T-scores may be used but Z-scores are preferred. In this patient group, a Z-score of -2.0 or lower is defined as "below the expected range for age." FRAX is a computer-based algorithm which uses easily obtained clinical risk factors combined with femoral neck BMD or T-score to estimate an individual 10-year fracture probability. FRAX with BMD predicts fracture risk better than clinical risk factors or BMD alone. It is not appropriate to use FRAX to monitor treatment response. ADDITIONAL FINDINGS: No significant additional findings. Dictated by: Carina Shaw MD on 02/26/2024 at 14:20 Approved by: Carina Shaw MD on 02/26/2024 at 14:23 Normal [facility] CALCIUM, URINE 24 HOUR [CCL] on 02-26-2024 Calcium, Urine 24 Hr 477.0 mg/24 hr High 100.0-300.0 [facility] Comment on above: Performed By: #### [id number] #### [facility],[address] [place], [place] [id number] Period (HRS) 24 hr Normal [facility] Comment on above: Performed By: #### [id number] #### [facility],[address] [place] [id number] Volume (ML) 2250 mL Normal [facility] [employer] [facility] [employer] [facility], [employer]. Work Phone: Comment on above: Result Comment: [place] [address] Mu Melo III, M.D. [id number] Performed By: #### 2 [id number] #### [facility],[address] [place] [address] No Panel Informationon 02-25 Calcium, Urine 24 Hr 477.0 {mg/24_hr} Abnormal 100.0 - 300.0 {mg/24_hr} [facility] [employer] [facility] [employer] Work Phone: Period (HRS) 24 {hr} Normal [facility] Work Phone: Endocrinology Visit Reporton 02-18-2024 Endocrinology Visit Report [facility] [address] [place] [address] OFFICE VISIT Date of Service: 02/18/24 MR#: [id number] Acct: [id number] Name: KAREN GAUTHIER Rep #: [id number] : 1960 Provider: Sandro De Luna Age/Sex: 63/F Location: [facility] Status: Signed Intake Vital Signs 02/18/24 07:56 Height 5 ft 2 in Weight: 151 lb 8 oz BMI 27.7 BP 156/86 H Blood Pressure Location Rt brachial Position Sitting Pulse 66 Pulse Source Monitor Pulse Oximetry (%) 98 Oxygen Delivery Method room air Intake Visit Reasons: Parathyroid Chief Complaint: Hyperparathyroidism/hyp ercalcemia Is patient in pain?: No Allergies amoxicillin Allergy (Intermediate, Verified 01/03/24 08:23) Rash Medications ???Medication ???Instructions ???Recorded ???Confirmed ???Type multivitamin 1 tab PO QAM 02/18/24 02/18/24 History sulfurzyme PO 02/18/24 History wolfberry PO 02/18/24 History PFSH Medical History (Updated 02/18/24 @ 08:[address] Gina Herman MD) Hyperparathyroidism Otitis externa, fungal, right ear Social History (Updated 01/03/24 @ 08:28 by Latonia Holland) Smoking Status: Never smoker Electronic Cigarette Use: not used second hand exposure: No alcohol intake: never substance use type: does not use HPI HPI Chief Complaint: Hyperparathyroidism/hyp ercalcemia Details: KAREN GAUTHIER, is a 63 F who presents to the office today for evaluation and management of elevated PTH level and hypercalcemia. Calcium levels in 2023: 10.7, 11.0, 11.3, 11.2 PTH levels in 2023: 137, 100, 125 TSH 2.09 eGFR > 60 I do not have vitamin D level or 24 hour urine for calcium or bone density exam. She denies history of kidney stone. She denies history of fracture or low bone mass (never tested). She denies symptoms. No family history of hypercalcemia. She reports little calcium in her diet and no calcium or vitamin D supplements. ROS Const Constitutional: No fatigue, weight change or change in appetite Eyes Eyes: No change in vision ENT ENT: No dizziness/vertigo or difficulty swallowing Cardio Cardiology: No chest pain at rest, chest pain with exertion, shortness of breath or palpitations Musc Musculoskeletal: No abnormal gait, joint pain, numbness or tingling Neuro Neurology: No abnormal gait, memory loss, numbness or tingling Psych Psychiatric: No change in appetite, No memory loss and No Thoughts of harming yourself/Others Resp Respiratory: No cough, chest congestion or shortness of breath Gastro GI: No abdominal pain, constipation, diarrhea or difficulty swallowing Genitourinary-Female: No burning urination Skin Skin: No itchy eyes or wounds Endo Endocrine: No fatigue or weight change Aller/Imm Allergy/Immunologic: No itchy eyes Exam Const General: cooperative, healthy appearing, comfortable, no acute distress, well developed and not cushingoid Nutritional Appearance: well nourished Orientation: alert, awake and oriented x3 HENMT Head: normal to inspection Ears: hearing grossly normal bilaterally Nose: external nose normal Mouth: oral mucosae normal Eyes General: appearance normal, both eyes and all related structures Alignment and Position: alignment normal Periorbital: periorbital findings normal Eyelids: eyelids normal Conjunctivae: conjunctivae normal Neck Neck: normal visual inspection Neck mass: No Thyroid: thyroid normal Lymphatic: no lymphadenopathy noted Chest Chest palpation inspection: normal inspection of the chest Resp Effort Inspection: normal respiratory effort, able to speak in complete sentences, symmetric chest movement, no audible wheezes and no cough Auscultation: Bilateral: Clear to Auscultation Cardio Rate: regular rate Rhythm: regular rhythm Skin General: no rashes or lesions noted Neuro General: patient alert, patient awake and patient oriented x3 Cranial Nerves: CN's II-XI intact bilaterally Cognition: normal cognition Speech: speech normal Gait: normal gait Motor: muscle tone normal throughout Extrem General: no edema Psych Appearance: grossly normal Mental Status: mental status grossly normal Mood: congruent mood Affect: normal affect Speech and Movement: speech and movement normal Attitude: cooperative Thought Process: normal Thought Content: normal Judgment: judgment good Assessment and Plan Assessment and Plan (1) Hyperparathyroidism: Status: Acute (2) Hypercalcemia: Status: Acute Orders: Orders Vitamin D,25 Hydroxy Today E21.3 - Hyperparathyroidism, unspecified, E55.9 - Vitamin D deficiency, unspecified Dexa Bone Density Study Today E21.3 - Hyperparathyroidism, unspecified Calcium, Urine 24HR Today E21.3 - Hyperparathyroidism, unspeci (more content not included)... Normal [facility] Laboratory - Chemistry and C hemistry - challengeon 02-18-2024 25-hydroxyvitamin D3 [Mass/Vol] 105.00 ng/mL Abnormal 30.00 - 100 ng/mL [facility]; [facility] Work Phone: VITAMIN D, 25 HYDROXYon VitD 105.00 ng/mL High 30.00 - 100 [facility] Comment on above: Result Comment: 25-O HD3 indicates both endogenous production and supplementation. 25-OHD2 is an indicator of exogenous sources, such as diet or supplementation. Therapy is based on measurement of Total 25-OHD, with levels <20 ng/mL indicative of Vitamin D deficiency, while levels between 20 ng/mL and 30 ng/mL suggest insufficiency. Optimal levels are >=30ng/mL. Vitamin D, 25-OH D3 Not Established Vitamin D, 25-OH D2 Not Established Performed By: #### [id number] #### [facility],[address] [place] [address] Laboratory - Chemistry and C hemistry - challengeon 11-13-2023 Albumin [Mass/Vol] 3.7 g/dL Normal 3.4 - 5.0 g/dL [facility]; [facility] Work Phone: Albumin [Mass/Vol] 1.2 g/dL Normal 0.9 - 1.6 [facility]; [facility] Work Phone: ALT [Catalytic activity/Vol] 35 U/L Normal 16 - 63 U/L [facility]; [facility] Work Phone: Anion gap [Moles/Vol] 9 mmol/L Abnormal 10 - 20 mmol/L [facility]; [facility] Work Phone: AST [Catalytic activity/Vol] 21 U/L Normal 13 - 39 U/L [facility]; [facility] Work Phone: Bilirubin [Mass/Vol] 0.9 mg/dL Normal 0.2 - 1.0 mg/dL [facility]; [facility] Work Phone: Calcium [Mass/Vol] 11.2 mg/dL Abnormal 8.5 - 10. 1 mg/dL [facility]; [facility] Work Phone: Chloride [Moles/Vol] 106 mmol/L Normal 98 - 107 mmol/L [facility]; [facility] Work Phone: CO2 [Moles/Vol] 30.1 mmol/L Normal 21.0 - 32.0 mmol/L [facility]; [facility] Work Phone: Creatinine [Mass/Vol] 0.65 mg/dL Normal 0.55 - 1.02 mg/dL [facility]; [facility] Work Phone: GFR/1.73 sq M.predicted among blacks MDRD (S/P/Bld) [Vol rate/Area] mL/min/{1.73_m2} Normal 60 - 999 {ML/MINUTE} [facility]; [facility] Work Phone: GFR/1.73 sq M.predicted MDRD (S/P/Bld) [Vol rate/Area] mL/min/{1.73_m2} Normal 60 - 999 {ML/MINUTE} [facility]; [facility] Work Phone: Globulin (S) [Mass/Vol] 3.0 g/dL Normal 1.5 - 3.8 g/dL [facility]; [facility] Work Phone: Glucose [Mass/Vol] 97 mg/dL Normal 74 - 106 mg/dL [facility]; [facility] Work Phone: Potassium [Moles/Vol] 4.0 mmol/L Normal 3.5 - 5.1 mmol/L [facility]; [facility] Work Phone: Protein [Mass/Vol] 6.7 g/dL Normal 6.4 - 8.2 g/dL [facility]; [facility] Work Phone: Sodium [Moles/Vol] 141 mmol/L Normal 136 - 145 mmol/L [facility]; [facility] Work Phone: Urea nitrogen [Mass/Vol] 8 mg/dL Normal 7 - 18 mg/dL [facility]; [facility] Work Phone: Urea nitrogen/Creatinine [Mass ratio] 12 {ratio} Normal 0 - 30 {ratio} [facility]; [facility] Work Phone: No Panel Informationon 11-12 AGE 62 {years} Normal [facility]; [facility] Work Phone: ALK PHOS 149 U/L Abnormal 46 - 116 U/L [facility]; [facility] Work Phone: CMP with eGFR Normal [facility]; [facility] Work Phone: PTH, Intact 125 pg/mL Abnormal 15 - 65 pg/mL [facility]; [facility] Work Phone: Laboratory - Chemistry and C hemistry - challengeon 08-30-2023 Albumin [Mass/Vol] 3.8 g/dL Normal 3.4 - 5.0 g/dL [facility]; [facility] Work Phone: Albumin [Mass/Vol] 1.2 g/dL Normal 0.9 - 1.6 [facility]; [facility] Work Phone: ALT [Catalytic activity/Vol] 47 U/L Normal 16 - 63 U/L [facility]; [facility] Work Phone: Anion gap [Moles/Vol] 12 mmol/L Normal 10 - 20 mmol/L [facility]; [facility] Work Phone: AST [Catalytic activity/Vol] 22 U/L Normal 13 - 39 U/L [facility]; [facility] Work Phone: Bilirubin [Mass/Vol] 1.0 mg/dL Normal 0.2 - 1.0 mg/dL [facility]; [facility] Work Phone: Calcium [Mass/Vol] 11.3 mg/dL Abnormal 8.5 - 10. 1 mg/dL [facility]; [facility] Work Phone: Chloride [Moles/Vol] 105 mmol/L Normal 98 - 107 mmol/L [facility]; [facility] Work Phone: CO2 [Moles/Vol] 27.7 mmol/L Normal 21.0 - 32.0 mmol/L [facility]; [facility] Work Phone: Creatinine [Mass/Vol] 0.65 mg/dL Normal 0.55 - 1.02 mg/dL [facility]; [facility] Work Phone: Free T3 [Mass/Vol] 2.9 pg/mL Normal 2.3 - 4.1 pg/mL [facility]; [facility] Work Phone: GFR/1.73 sq M.predicted among blacks MDRD (S/P/Bld) [Vol rate/Area] mL/min/{1.73_m2} Normal 60 - 999 {ML/MINUTE} [facility]; [facility] Work Phone: GFR/1.73 sq M.predicted MDRD (S/P/Bld) [Vol rate/Area] mL/min/{1.73_m2} Normal 60 - 999 {ML/MINUTE} [facility]; [facility] Work Phone: Globulin (S) [Mass/Vol] 3.1 g/dL Normal 1.5 - 3.8 g/dL [facility]; [facility] Work Phone: Glucose [Mass/Vol] 88 mg/dL Normal 74 - 106 mg/dL [facility]; [facility] Work Phone: Potassium [Moles/Vol] 3.8 mmol/L Normal 3.5 - 5.1 mmol/L [facility]; [facility] Work Phone: Protein [Mass/Vol] 6.9 g/dL Normal 6.4 - 8.2 g/dL [facility]; [facility] Work Phone: Sodium [Moles/Vol] 141 mmol/L Normal 136 - 145 mmol/L [facility]; [facility] Work Phone: T4 [Mass/Vol] 6.0 ug/dL Normal 4.7 - 13.3 ug/dL [facility]; [facility] Work Phone: TSH Qn 2.09 m[IU]/L Normal 0.35 - 3.74 {uIU/ml} [facility]; [facility] Work Phone: Urea nitrogen [Mass/Vol] 10 mg/dL Normal 7 - 18 mg/dL [facility]; [facility] Work Phone: Urea nitrogen/Creatinine [Mass ratio] 15 {ratio} Normal 0 - 30 {ratio} [facility]; [facility] Work Phone: No Panel Informationon 08-29 AGE 62 {years} Normal [facility]; [facility] Work Phone: ALK PHOS 142 U/L Abnormal 46 - 116 U/L [facility]; [facility] Work Phone: CEA 2.4 ng/mL Normal [facility]; [facility]. Work Phone: CMP with eGFR Normal [facility]; [facility] Work Phone: EBV VCA IgM, Qual Negative Normal [facility]; [facility] Work Phone: PTH, Intact 100 pg/mL Abnormal 15 - 65 pg/mL [facility].; [facility]. Work Phone: T4 (THYROXINE) TOTAL Normal [facility]; [facility] Work Phone: Laboratory - Chemistry and C hemistry - challengeon 05-21-2023 Parathyrin.intact [Mass/Vol] 137 pg/mL Abnormal 15 - 65 pg/mL [facility]; [facility]. Work Phone: No Panel Informationon 05-20 Performing Lab See Note Normal [facility]; [facility] Work Phone: PTH, Intact 137 pg/mL Abnormal 15 - 65 pg/mL [facility]; [facility] Laboratory - Chemistry and C hemistry - challengeon 05-16-2023 Anion gap [Moles/Vol] 10 mmol/L Normal 10 - 20 mmol/L [facility]; [facility] Calcium [Mass/Vol] 11.0 mg/dL Abnormal 8.5 - 10. 1 mg/dL [facility]; [facility], [facility] Chloride [Moles/Vol] 108 mmol/L Abnormal 98 - 107 mmol/L [facility]; [facility], [facility] CO2 [Moles/Vol] 28.3 mmol/L Normal 21.0 - 32.0 mmol/L [facility].; [facility] Creatinine [Mass/Vol] 0.59 mg/dL Normal 0.55 - 1.02 mg/dL [facility].; [facility], [facility] GFR/1.73 sq M.predicted among blacks MDRD (S/P/Bld) [Vol rate/Area] mL/min/{1.73_m2} Normal 60 - 999 {ML/MINUTE} [facility].; [facility] GFR/1.73 sq M.predicted MDRD (S/P/Bld) [Vol rate/Area] mL/min/{1.73_m2} Normal 60 - 999 {ML/MINUTE} [facility].; [facility], [facility] Glucose [Mass/Vol] 97 mg/dL Normal 74 - 106 mg/dL [facility]; [facility], [facility] Potassium [Moles/Vol] 4.2 mmol/L Normal 3.5 - 5.1 mmol/L [facility].; [facility], [facility] Sodium [Moles/Vol] 142 mmol/L Normal 136 - 145 mmol/L [facility].; [facility], [facility] Urea nitrogen [Mass/Vol] 10 mg/dL Normal 7 - 18 mg/dL [facility].; [facility], [facility] No Panel Informationon 05-16 AGE 62 {years} Normal [facility]; [facility] BMP with eGFR Normal [facility]; [facility] Laboratory - Chemistry and C hemistry - challengeon 04-18-2023 Anion gap [Moles/Vol] 12 mmol/L Normal 10 - 20 mmol/L [facility]; [facility] Calcium [Mass/Vol] 10.7 mg/dL Abnormal 8.5 - 10. 1 mg/dL [facility]; [facility] Chloride [Moles/Vol] 107 mmol/L Normal 98 - 107 mmol/L [facility]; [facility] Cholesterol [Mass/Vol] 115 mg/dL Normal 0 - 240 mg/dL [facility]; [facility] Cholesterol in HDL [Mass or moles/Vol] 71 mg/dL Abnormal 40 - 60 mg/dL [facility]; [facility] Cholesterol in LDL [Mass/Vol] 39 mg/dL Normal 0 - 129 mg/dL [facility]; [facility] Cholesterol.total/C holesterol in HDL [Mass ratio] 1.6 {ratio} Normal 0.0 - 5.0 [facility]; [facility] CO2 [Moles/Vol] 27.2 mmol/L Normal 21.0 - 32.0 mmol/L [facility]; [facility] Creatinine [Mass/Vol] 0.59 mg/dL Normal 0.55 - 1.02 mg/dL [facility]; [facility] GFR/1.73 sq M.predicted among blacks MDRD (S/P/Bld) [Vol rate/Area] mL/min/{1.73_m2} Normal 60 - 999 {ML/MINUTE} [facility]; [facility] GFR/1.73 sq M.predicted MDRD (S/P/Bld) [Vol rate/Area] mL/min/{1.73_m2} Normal 60 - 999 {ML/MINUTE} [facility]; [facility], [facility]. Glucose [Mass/Vol] 95 mg/dL Normal 74 - 106 mg/dL [facility].; [facility], [facility] Lipid 1996 panel Normal [facility].; [facility], [facility]. Potassium [Moles/Vol] 4.0 mmol/L Normal 3.5 - 5.1 mmol/L [facility].; [facility], [facility] Sodium [Moles/Vol] 142 mmol/L Normal 136 - 145 mmol/L [facility].; [facility], [facility] Triglyceride [Mass/Vol] 24 mg/dL Normal 0 - 150 mg/dL [facility].; [facility], [facility]. Urea nitrogen [Mass/Vol] 10 mg/dL Normal 7 - 18 mg/dL [facility].; [facility], [facility]. No Panel Informationon 04-18 AGE 62 {years} Normal [facility].; [facility], [facility]. BMP with eGFR Normal [facility], [facility] [employer] Operator Cytology Report See Note Normal [facility], [facility]. Work Phone: OCCULT BLOOD, FECES, SINGLE (IN OFFICE) Negative Normal [facility].; [facility], [facility]. THIN PREP (Paz) PAP WITH HPV REFLEX Normal [facility].; [facility], [facility]. Laboratory - Chemistry and C hemistry - challengeon 05-17-2015 Bilirubin Ql (U) Negative Normal [facility], [facility].; [facility] Ketones Ql (U) Negative Normal [facility].; [facility] pH (U) 7.0 [pH] Normal [facility].; [facility], [facility]. Specific gravity (U) [Rel density] 1.010 [facility].; [facility], [facility]. Laboratory - Hematology and Cell countson 05-17-2015 Hemoglobin Ql (U) HEMOLYZED TRACE Abnormal [facility].; [facility], [facility]. Laboratory - Specimen inform ationon 05-17-2015 Appearance (U) CLEAR Normal [facility].; [facility], [facility]. Color (U) YELLOW Normal [facility].; [facility], [facility]. Laboratory - Urinalysison Glucose Test strip (U) [Mass/Vol] Negative Normal [facility] [facility].; [facility], [facility]. Leukocyte esterase Test strip Ql (U) 2+ Abnormal [facility].; [facility], [facility]. Nitrite Ql (U) Negative Normal [facility].; [facility], [facility]. Protein Ql (U) Negative Normal [facility].; [facility], [employer]. No Panel Informationon UA - ODOR Negative Normal [facility].; [facility], [facility]. UA - UROBILIGEN 0.2 Normal [facility].; [facility], [facility]. Laboratory - Blood bankon Albumin given [Vol] 4.1 g/dL Normal 3.2 - 4.8 g/dL E [facility].; [facility], [facility]. Laboratory - Chemistry and C hemistry - challengeon 09-16-2011 Albumin/Globulin [Mass ratio] 1.4 {ratio} Normal 0.9 - 1.6 [facility].; [facility], Inc[facility] ALP [Catalytic activity/Vol] 79 U/L Normal 38 - 126 U/L [facility].; [facility], Inc[facility] ALT [Catalytic activity/Vol] 46 U/L Normal 10 - 49 U/L [facility]; [facility] AST [Catalytic activity/Vol] 21 U/L Normal 8 - 34 U/L [facility]; [facility] Base excess Calc (BldMV) [Moles/Vol] 7.0 meq/L Normal 4.0 - 15.0 meq/L [facility]; [facility] Bilirubin direct and total panel [Mass/Vol] 1.0 mg/dL Normal 0.2 - 1.2 mg/dL [facility]; [facility] Calcium [Mass/Vol] 9.7 mg/dL Normal 8.4 - 10. 1 mg/dL [facility]; [facility] Chloride [Moles/Vol] 109 mmol/L Normal 98 - 110 meq/L [facility]; [facility] Cholesterol [Mass/Vol] 84 mg/dL Normal 50 - 199 mg/dL [facility]; [facility] Cholesterol in HDL [Mass/Vol] 49 mg/dL Normal 40 - 59 mg/dL [facility]; [facility] Cholesterol in LDL [Mass/Vol] 25 mg/dL Normal 0 - 129 mg/dL [facility]; [facility] Cholesterol in VLDL [Mass/Vol] 10 mg/dL Normal [facility]; [facility], [facility] CO2 [Moles/Vol] 27 mmol/L Normal 22 - 32 meq/L [facility], [facility] Creatinine [Mass/Vol] 0.61 mg/dL Normal 0.50 - 1.20 mg/dL [facility].; [facility], [facility] Free T4 index Calc [Mass/Vol] 9.43 Normal 3.60 - 14.00 [facility]; [facility] Work Phone: GFR/1.73 sq M.predicted among blacks MDRD (S/P/Bld) [Vol rate/Area] mL/min/{1.73_m2} Normal [facility].; [facility]. Work Phone: GFR/1.73 sq M.predicted among non-blacks MDRD (S/P/Bld) [Vol rate/Area] mL/min/{1.73_m2} Normal [facility].; [facility], [facility]. Work Phone: Globulin (S) [Mass/Vol] 2.9 g/dL Normal 1.5 - 3.8 g/dL [facility].; [facility], [facility]. Glucose [Mass/Vol] 94 mg/dL Normal 70 - 110 mg/dL [facility].; [facility] Iron [Mass/Vol] 74 ug/dL Normal 37 - 170 ug/dL [facility].; [facility], [facility]. Iron binding capacity [Mass/Vol] 376 ug/dL Normal 250 - 500 ug/dL [facility].; [facility], [facility]. Iron saturation [Mass fraction] 20 % Normal [facility].; [facility], [facility] Potassium [Moles/Vol] 4.2 mmol/L Normal 3.5 - 5.0 meq/L [facility].; [facility], [facility]. Protein [Mass/Vol] 7.0 g/dL Normal 6.0 - 8.5 g/dL [facility].; [facility] Sodium [Moles/Vol] 143 mmol/L Normal 136 - 145 meq/L [facility].; [facility], [facility]. T4 [Mass/Vol] 7.2 ug/dL Normal 4.8 - 13.9 ug/dL [facility].; [facility] T4/Triiodothyronine (T3) uptake index [Mass ratio] 1.31 {ratio} Abnormal 0.76 - 1.23 {ratio} [facility]; [facility] Triglyceride [Mass/Vol] 52 mg/dL Normal 3 - 149 mg/dL [facility]; [facility] TSH Qn 1.62 m[IU]/L Normal 0.36 - 3.74 {mcIU/mL} [facility]; [facility] Urea nitrogen [Mass/Vol] 10.0 mg/dL Normal 8.0 - 22.0 mg/dL [facility]; [facility] Urea nitrogen/Creatinine [Mass ratio] 16.4 mg/mg Normal 10.0 - 22.0 [facility]; [facility] Laboratory - Hematology and Cell countson 09-16-2011 Basophils/100 WBC (Bld) 0.1 % Normal 0.0 - 2.5 % [facility]; [facility] Eosinophils/100 WBC (Bld) 2.6 % Normal 0.0 - 6.0 % [facility]; [facility] Erythrocyte distribution width (RBC) [Ratio] 13.1 % Normal 11.5 - 15.5 % [facility]; [facility] Hematocrit (Bld) [Volume fraction] 37.9 % Normal 34.0 - 46.0 % [facility]; [facility] Hemoglobin (Bld) [Mass/Vol] 13.1 g/dL Normal 12.0 - 16.0 g/dL [facility]; [facility] Lymphocytes/100 WBC (Bld) 28.4 % Normal 20.0 - 40.0 % [facility]; [facility] MCH (RBC) [Entitic mass] 32.6 pg Normal 27.0 - 33.0 pg [facility].; [facility], [facility] MCHC (RBC) [Mass/Vol] 34.6 g/dL Normal 32.0 - 36.0 g/dL [facility].; [facility], [facility] MCV (RBC) [Entitic vol] 94.2 fL Normal 80.0 - 99.0 fL [facility].; [facility], [facility] Monocytes/100 WBC (Bld) 5.9 % Normal 2.0 - 13.0 % [facility].; [facility], [facility] Neutrophils (Bld) [#/Vol] 4.04 {10_3/mcL} Normal 1.90 - 7.90 {10_3/mcL} [facility].; [facility], [facility] Neutrophils/100 WBC (Bld) 63.0 % Normal 50.0 - 75.0 % [facility].; [facility], [facility]. Platelet mean volume (Bld) [Entitic vol] 8.1 fL Normal 6.6 - 10.5 fL [facility].; [facility], [facility]. Platelets (Bld) [#/Vol] 197 {10_3/mcL} Normal 150 - 450 {10_3/mcL} [facility].; [facility], [facility]. RBC (Bld) [#/Vol] 4.03 {10_6/mcL} Abnormal 4.10 - 5.30 {10_6/mcL} [facility].; [facility], [facility]. WBC (Bld) [#/Vol] 6.42 {10_3/mcL} Normal 4.50 - 10.80 {10_3/mcL} [facility], [facility].; [facility], [facility]. Laboratory - Chemistry and C hemistry - challengeon 08-22-2011 Bilirubin Ql (U) Negative Normal [facility].; [facility], [facility] Ketones Ql (U) Negative Normal [facility]; [email or web address] [facility] [employer] [facility] pH (U) 6.0 [pH] Normal [facility].; [facility] [employer] [facility] Specific gravity (U) [Rel density] 1.020 Normal [facility], [facility].; [employer] [facility] [employer] [facility] Laboratory - Hematology and Cell countson 08-22-2011 Hemoglobin Ql (U) Negative Normal [facility], [email or web address] [facility] [employer] [facility] Laboratory - Specimen inform ationon 08-22-2011 Appearance (U) CLEAR Normal [facility] [email or web address] [facility] [employer] [facility] Color (U) YELLOW Normal [facility].; [email or web address] [facility] [employer] [facility] Laboratory - Urinalysison Glucose Test strip (U) [Mass/Vol] Negative Normal [facility] [employer] [facility] [facility] [employer] [facility] Nitrite Ql (U) Negative Normal [facility], [employer].; [employer] [facility] [employer] [facility] Protein Ql (U) Negative Normal [facility], [employer].; [email or web address] [facility] [employer] [facility] No Panel Informationon 08-21 OCCULT BLOOD, FECES, SINGLE (IN OFFICE) Negative Normal [facility] [employer] [facility], [employer].; [employer] [facility] [employer] [facility]. Pathology CELL INSPECTOR SEE BELOW Normal [facility] [employer] [facility], [employer].; [employer] [facility] [employer] [facility] UA - ODOR Negative Normal [facility].; [email or web address] [facility] [employer] [facility] UA - UROBILIGEN 0.2 Normal [facility] [employer] [facility].; [employer] [facility] [employer] [facility] Vital Signs Date Time Vital Sign Value Performing Clinician Facility 01-02-2025 14:06-0400 Body weight 69.39 kg Sachi Montoya MD Work Phone: [facility] 01-02-2025 14:06-0400 Diastolic blood pressure 85 mm[Hg] Sachi Montoya MD Work Phone: [facility] 01-02-2025 14:06-0400 Heart rate 83 /min Sachi Montoya MD Work Phone: [facility] 01-02-2025 14:06-0400 Respiratory rate 17 /min Sachi Montoya MD Work Phone: [facility] 01-02-2025 14:06-0400 SaO2% (BldA) [Mass fraction] 96 % Sachi Montoya MD Work Phone: [facility] 01-02-2025 14:06-0400 Systolic blood pressure 135 mm[Hg] Sachi Montoya MD Work Phone: [facility] 11-21-2024 10:08-0400 Body height 157.48 cm Sachi Montoya MD Work Phone: [facility] 11-21-2024 10:08-0400 Body mass index (BMI) [Ratio] 28 kg/m2 Sachi Montoya MD Work Phone: [facility] 11-21-2024 10:08-0400 Body weight 69.39 kg Sachi Montoya MD Work Phone: [facility] 11-21-2024 10:08-0400 Diastolic blood pressure 81 mm[Hg] Sachi Montoya MD Work Phone: [facility] 11-21-2024 10:08-0400 Heart rate 60 /min Sachi Montoya MD Work Phone: [facility] 11-21-2024 10:08-0400 Respiratory rate 17 /min Sachi Montoya MD Work Phone: [facility] 11-21-2024 10:08-0400 SaO2% (BldA) [Mass fraction] 98 % Sachi Montoya MD Work Phone: [facility] 11-21-2024 10:08-0400 Systolic blood pressure 127 mm[Hg] Sachi Montoya MD Work Phone: [facility] 11-05-2024 13:18-0400 Body height 153.67 cm SACHI MONTOYA MD Work Phone: [facility]; [facility] [employer] [facility] [employer] 11-05-2024 13:18-0400 Body mass index (BMI) [Ratio] 29.46 kg/m2 SACHI MONTOYA MD Work Phone: [employer] [facility] [employer] [employer]; [facility] [employer] [facility] DepartmentBl[facility]. 11-05-2024 13:18-0400 Body surface area Derived from formula 1.68 m2 SACHI MONTOYA MD Work Phone: [facility] [employer] [facility] [employer] [employer]; [facility] [employer] 11-05-2024 13:18-0400 Body weight 69.57 kg SAHCI MONTOYA MD Work Phone: [employer] [facility] [employer] [employer]; [facility] [employer] 11-05-2024 13:18-0400 Diastolic blood pressure 73 mm[Hg] SACHI MONTOYA MD Work Phone: [employer]; [facility]UN[facility] [employer] [facility] [employer]. Comment on above: Patient Position: Sitting; Cuff Location : Left Arm; Cuff Size: Standard 11-05-2024 13:18-0400 Heart rate 73 /min SACHI MONTOYA MD Work Phone: [employer] [facility] [employer] [employer]; [facility]UNIV[facility] [employer] [facility] [employer] Comment on above: Pattern: Regular 11-05-2024 13:18-0400 Systolic blood pressure 161 mm[Hg] SACHI MONTOYA MD Work Phone: [employer]; [facility]UNIV[facility] [employer] [facility] [employer] Comment on above: Patient Position: Sitting; Cuff Location : Left Arm; Cuff Size: Standard 08-18-2024 15:29-0400 Body height 153.67 cm SACHI MONTOYA MD Work Phone: [employer]; [employer]fieOchsner Medical CenterEuclises [employer] [place] [facility]Mobile [employer] [employer] 08-18-2024 15:29-0400 Body mass index (BMI) [Ratio] 29.39 kg/m2 SACHI MONTOYA MD Work Phone: [employer]; [employer] [place] [facility] DepartmentRemitly Inc[employer] 08-18-2024 15:29-0400 Body surface area Derived from formula 1.68 m2 SACHI MONTOYA MD Work Phone: [employer] [facility] [facility] DepartmentBlueroof [facility].; [employer] 08-18-2024 15:29-0400 Body weight 69.4 kg SACHI MONTOYA MD Work Phone: [employer] [facility] DepartmentBluero[facility].; [employer] [facility] [facility] DepartmentRemitly Inc[employer] 08-18-2024 15:29-0400 Diastolic blood pressure 94 mm[Hg] SACHI MONTOYA MD Work Phone: [employer] [facility] DepartmentBl[facility].; [employer]. Comment on above: Patient Position: Sitting; Cuff Location : Left Arm; Cuff Size: Standard 08-18-2024 15:29-0400 Heart rate 57 /min SACHI MONTOYA MD Work Phone: [employer] [facility] DepartmentBluero[facility].; [employer]. Comment on above: Pattern: Regular 08-18-2024 15:29-0400 Systolic blood pressure 141 mm[Hg] SACHI MONTOYA MD Work Phone: [employer] [facility] DepartmentBluero[facility].; [employer]. Comment on above: Patient Position: Sitting; Cuff Location : Left Arm; Cuff Size: Standard 03-17-2024 13:16-0500 Body height 153.67 cm SACHI MONTOYA MD Work Phone: [employer] [facility] DepartmentBl[facility].; [employer]. 03-17-2024 13:16-0500 Body mass index (BMI) [Ratio] 29.2 kg/m2 SACHI MONTOYA MD Work Phone: [employer] [facility] DepartmentBl[facility]ero[facility].; [employer]. 03-17-2024 13:16-0500 Body surface area Derived from formula 1.67 m2 SACHI MONTOYA MD Work Phone: [employer] [facility] DepartmentMobile [employer]pping [employer]; [employer]. 03-17-2024 13:16-0500 Body temperature 97.1 [degF] SACHI MONTOYA MD Work Phone: [employer]; [employer]. Comment on above: Method: Oral 03-17-2024 13:16-0500 Body weight 68.95 kg SACHI MONTOYA MD Work Phone: [employer] [facility] DepartmentBl[facility]ero[facility].; [employer]. 03-17-2024 13:16-0500 Diastolic blood pressure 80 mm[Hg] SACHI MONTOYA MD Work Phone: [employer]. Comment on above: Patient Position: Sitting; Cuff Location : Left Arm; Cuff Size: Standard 03-17-2024 13:16-0500 Heart rate 64 /min SACHI MONTOYA MD Work Phone: [employer]; [employer]. Comment on above: Pattern: Regular 03-17-2024 13:16-0500 Inhaled oxygen concentration 21 % SACHI MONTOYA MD Work Phone: [employer]; [employer]. Comment on above: Room air 03-17-2024 13:16-0500 SaO2% (BldA) [Mass fraction] 97 % SACHI MONTOYA MD Work Phone: [employer]. 03-17-2024 13:16-0500 Systolic blood pressure 128 mm[Hg] SACHI MONTOYA MD Work Phone: [employer]. Comment on above: Patient Position: Sitting; Cuff Location : Left Arm; Cuff Size: Standard 02-18-2024 07:56-0500 Body height 157.48 cm Gaby Emeryer CASH ANALYST-C Work Phone: [facility] 02-18-2024 07:56-0500 Body mass index (BMI) [Ratio] 27.7 kg/m2 Gaby Orestestetter CASH ANALYST-C Work Phone: [facility] 02-18-2024 07:56-0500 Body weight 68.71 kg Gaby Emeryer CASH ANALYST-C Work Phone: [facility] 02-18-2024 07:56-0500 Diastolic blood pressure 86 mm[Hg] Gaby Moralestter CASH ANALYST-C Work Phone: [facility] 02-18-2024 07:56-0500 Heart rate 66 /min aGby Moralestter CASH ANALYST-C Work Phone: [facility] 02-18-2024 07:56-0500 SaO2% (BldA) [Mass fraction] 98 % Gaby Moralestter CASH ANALYST-C Work Phone: [facility] 02-18-2024 07:56-0500 Systolic blood pressure 156 mm[Hg] Gaby Emeryer CASH ANALYST-C Work Phone: [facility] 04-18-2023 09:56-0500 Body height 154.94 cm Dee Steve RN [facility].; [facility]. 04-18-2023 09:56-0500 Body mass index (BMI) [Ratio] 30.61 kg/m2 Dee Steve RN [facility].; [facility]. 04-18-2023 09:56-0500 Body surface area Derived from formula 1.73 m2 Dee Steve RN [facility].; [facility]. 04-18-2023 09:56-0500 Body weight 73.48 kg Dee Steve RN [facility].; [facility] [employer] 04-18-2023 09:56-0500 Diastolic blood pressure 90 mm[Hg] Dee Steve RN [facility] Center[facility].; [facility]. Comment on above: Patient Position: Sitting; Cuff Location : Left Arm; Cuff Size: Large 04-18-2023 09:56-0500 Heart rate 65 /min Dee Steve RN [facility] Center[facility].; [facility] HospitalBl[facility]. Comment on above: Pattern: Regular 04-18-2023 09:56-0500 Systolic blood pressure 156 mm[Hg] Dee Steve RN [facility] Center[facility].; [facility] Hospital[facility]. Comment on above: Patient Position: Sitting; Cuff Location : Left Arm; Cuff Size: Large 02-21-2021 14:12050 Body temperature 98.2 [degF] GABY [email or web address] CELL TENDER-C Work Phone: [facility] Center[facility]; [facility] CENTERFirstJob KALISPEL [employer] [facility] [employer] [facility] DepartmentBl[facility]. Comment on above: Method: Oral 02-21-2021 14:12-0500 Diastolic blood pressure 86 mm[Hg] GABY [email or web address] CELL TENDER-C Work Phone: [facility] Center[facility]; [facility] [employer] [facility] DepartmentBl[facility]. Comment on above: Patient Position: Sitting; Cuff Location : Left Arm; Cuff Size: Standard 02-21-2021 14:12-0500 Heart rate 60 /min GABY [email or web address] CELL TENDER-C Work Phone: [facility]; [facility] [employer] [facility] DepartmentBl[facility]. Comment on above: Pattern: Regular 02-21-2021 14:12-0500 Inhaled oxygen concentration 21 % [email or web address] [email or web address] CELL TENDER-C Work Phone: [facility]; [facility] [employer] [facility] DepartmentBl[facility]. Comment on above: Room air 02-21-2021 14:12-0500 SaO2% (BldA) [Mass fraction] 96 % GABY SharingforceTETTER CELL TENDER-C Work Phone: [facility] [employer]; [employer] [facility] [employer] 02-21-2021 14:12-0500 Systolic blood pressure 138 mm[Hg] GABY SOFIAFSTETTER CELL TENDER-C Work Phone: [facility] [employer] [facility] DepartmentMobile [employer] [employer]; [employer] [facility] [employer] [facility] DepartmentBl[facility] 360. Comment on above: Patient Position: Sitting; Cuff Location : Left Arm; Cuff Size: Standard 02-21-2021 13:52-0500 Body height 154.94 cm GABY [email or web address] CELL TENDER-C Work Phone: [employer]; [employer] [facility] [employer] 02-21-2021 13:52-0500 Body mass index (BMI) [Ratio] 30.61 kg/m2 GABY SharingforceTETTER CELL TENDER-C Work Phone: [facility] [employer]; [employer] [facility] [employer] 02-21-2021 13:52-0500 Body surface area Derived from formula 1.73 m2 GABY SharingforceTETTER CELL TENDER-C Work Phone: [facility] [employer] [facility] [employer]. 02-21-2021 13:52-0500 Body weight 73.48 kg GABY SharingforceTETTER CELL TENDER-C Work Phone: [facility] [employer].; [facility] [employer]. 05-17-2015 10:50-0500 Body height 154.94 cm Dee Steve RN [facility] [employer] [facility] [employer] [facility]Bl[facility]. 05-17-2015 10:50-0500 Body mass index (BMI) [Ratio] 32.12 kg/m2 Dee Steve RN [facility] [employer] [facility] DepartmentBl[facility].; [facility] [employer] [facility] DepartmentBl[facility] 360. 05-17-2015 10:50-0500 Body surface area Derived from formula 1.76 m2 Dee Steve RN [facility] [employer] [facility] DepartmentBl[facility] [employer].; [email or web address] [facility] [employer] [facility] [facility] DepartmentRemitly Inc[employer] 05-17-2015 10:50-0500 Body temperature 97.3 [degF] Dee Steve RN [facility] [employer] [facility] DepartmentBl[facility] [employer].; [email or web address] [facility] [employer] [facility], [employer]. Comment on above: Method: Oral 05-17-2015 10:50-0500 Body weight 77.11 kg Dee Steve RN [facility] HospitalEuclises Pharm[facility] DepartmentBl[facility]ero[facility].; [email or web address] [facility] [employer] [facility] [facility] DepartmentRemitly Inc[employer] 05-17-2015 10:50-0500 Diastolic blood pressure 83 mm[Hg] Dee Steve RN [facility] HospitalEuclises Pharmaceuticals [place] [facility].; [email or web address] [facility] [employer] [facility], [employer]. Comment on above: Patient Position: Sitting; Cuff Location : Right Arm; Cuff Size: Large 05-17-2015 10:50-0500 Heart rate 60 /min Dee Steve RN [facility] [employer] [place] [facility] DepartmentBl[facility].; [email or web address] [facility] [employer] [place] [facility] DepartmentBl[facility] 360. Comment on above: Pattern: Regular 05-17-2015 10:50-0500 Systolic blood pressure 143 mm[Hg] Dee Steve RN [facility] [employer] [place] [facility] DepartmentBl[facility] 360.; [email or web address] [facility] [employer] [place] [facility] DepartmentBl[facility] 360. Comment on above: Patient Position: Sitting; Cuff Location : Right Arm; Cuff Size: Large 04-30-2012 13:04-0500 Body height 165.1 cm GABY SOFIAAtmoceanMARYFinAnalytica Work Phone: [facility] Hospital[facility]ucl[facility] Pharm[facility] [place] [facility] DepartmentBl[facility] 360.; [email or web address] [facility] [employer] [place] [facility] DepartmentRemitly Inc. 04-30-2012 13:04-0500 Body mass index (BMI) [Ratio] 28.46 kg/m2 GABY [email or web address] Work Phone: [facility] HospitalServeron.; [email or web address] [facility] [employer] [place] [facility] DepartmentRemitly Inc. 04-30-2012 13:04-0500 Body surface area Derived from formula 1.85 m2 GABY BISMARKLoomio-C Work Phone: [facility] [employer].; [employer] [facility] HospitalEuclises Pharmaceuticals [facility] [facility], Inc. 04-30-2012 13:04-0500 Body temperature 98.9 [degF] GABY MORANTETTER CELL TENDER-C Work Phone: [facility] [employer] [place] [facility] DepartmentBl[facility]of 360.; LAUREL Bizak [facility]. Comment on above: Method: Oral 04-30-2012 13:04-0500 Body weight 77.57 kg GABY MORANTETTER CELL TENDER-C Work Phone: [facility] [employer] [place] [facility] DepartmentBl[facility] 360.; LAUREL Bizak [facility] Center[facility] 360. 04-30-2012 13:04-0500 Diastolic blood pressure 81 mm[Hg] GABY MORANTETTER CELL TENDER-C Work Phone: [facility] [employer] [place] [facility] DepartmentBl[facility] 360.; LAUREL Bizak [facility] [employer] [place] [facility] DepartmentBl[facility] 360. Comment on above: Patient Position: Sitting; Cuff Location : Left Arm; Cuff Size: Standard 04-30-2012 13:04-0500 Heart rate 70 /min GABY MORANTETTER CELL TENDER-C Work Phone: [facility] HospitalEuclises Pharmaceuticals [place] [facility] DepartmentBl[facility]of 360.; [employer] [facility] [employer] [place] [facility] DepartmentBl[facility] 360. Comment on above: Pattern: Regular 04-30-2012 13:04-0500 Systolic blood pressure 135 mm[Hg] GABY MORANTETTER CELL TENDER-C Work Phone: [facility] [employer] [place] [facility] DepartmentBl[facility] 360.; [employer] [facility] [employer] [place] [facility] DepartmentBl[facility] 360. Comment on above: Patient Position: Sitting; Cuff Location : Left Arm; Cuff Size: Standard 12-15-2011 10:24-0400 Body height 165.1 cm GABY MORALESTTER CELL TENDER-C Work Phone: [facility] [employer] [place] [facility] DepartmentBl[facility] 360.; [employer] [facility] [employer] [place] [facility] DepartmentBl[facility] 360. 12-15-2011 10:24-0400 Body mass index (BMI) [Ratio] 28.79 kg/m2 GABY MORALESTTER CELL TENDER-C Work Phone: [facility] [employer] [place] [facility] DepartmentBl[facility] 360.; LAUREL Bizak [facility] [employer] [place] [facility] DepartmentBl[facility]of 360. 12-15-2011 10:24-0400 Body surface area Derived from formula 1.86 m2 GABY MORANTETTER CELL TENDER-C Work Phone: [facility] Center[facility].; [facility] SystemRem[facility] Inc. 12-15-2011 10:24-0400 Body weight 78.47 kg GABY EMERYER CELL TENDER-C Work Phone: [facility] Center[facility] 360.; [facility], Inc. 12-15-2011 10:24-0400 Diastolic blood pressure 85 mm[Hg] GABY MORALESTTER CELL TENDER-C Work Phone: [facility] Center[facility] 360.; LAUREL Bizak [facility] [employer] [place] [facility] DepartmentBl[facility] 360. Comment on above: Patient Position: Sitting; Cuff Location : Left Arm; Cuff Size: Large 12-15-2011 10:24-0400 Heart rate 60 /min GABY MORALESTTER CELL TENDER-C Work Phone: [facility] [employer] [place] [facility] DepartmentBl[facility] 360.; [employer] [facility] [employer] [place] [facility] DepartmentBl[facility]of 360. Comment on above: Pattern: Regular 12-15-2011 10:24-0400 Systolic blood pressure 145 mm[Hg] GABY MORALESTTER CELL TENDER-C Work Phone: [facility] [employer] [place] [facility] DepartmentBl[facility] 360.; [employer] [facility] [employer] [place] [facility] DepartmentBl[facility]of 360. Comment on above: Patient Position: Sitting; Cuff Location : Left Arm; Cuff Size: Large 08-22-2011 14:27-0400 Body height 165.1 cm [facility] AreaRemitly [facility].; [facility], [facility]. 08-22-2011 14:27-0400 Body mass index (BMI) [Ratio] 27.96 kg/m2 [facility] AreaRemitly [facility].; [facility], [facility]. 08-22-2011 14:27-0400 Body surface area Derived from formula 1.84 m2 [facility] AreaRemitly [facility].; [facility], [facility]. 08-22-2011 14:27-0400 Body weight 76.2 kg [facility] AreaRemitly [facility].; [facility], [facility]. 08-22-2011 14:27-0400 Diastolic blood pressure 86 mm[Hg] [facility] AreaBl[facility]eroof 360.; [facility], [facility]. Comment on above: Patient Position: Sitting; Cuff Location : Left Arm; Cuff Size: Standard 08-22-2011 14:27-0400 Heart rate 60 /min [facility] AreaRemitly [facility].; [facility] SystemRem[facility]ly [facility]. Comment on above: Pattern: Regular 08-22-2011 14:27-0400 Systolic blood pressure 142 mm[Hg] [facility] AreaRemitly [facility].; [facility], [facility]. Comment on above: Patient Position: Sitting; Cuff Location : Left Arm; Cuff Size: Standard Encounters Encounter Date Encounter Type Care Provider Facility Start: 01-28-2025 ambulatory Sachi Aguilera :[facility] Start: 01-19-2025 End: 01-19-2025 ambulatory SACHI MONTOYA [facility] Start: 01-16-2025 Encounter for other preprocedural examination Mita Mujica [facility] Start: 01-02-2025 End: 01-02-[address] Mita Mujica MD -[facility] Work Phone: Start: 01-02-2025 End: 01-02-2025 ambulatory Sachi Montoya MD Work Phone: -[facility] Start: 12-12-2024 End: 12-12-2024 [facility] Start: 11-21-2024 End: 11-21-2024 Historical Summary SACHI MONTOYA MD Work Phone: [facility] Start: 11-21-2024 End: 11-21-[address] Mita Mujica MD -[facility] Work Phone: Start: 11-21-2024 End: 11-21-2024 ambulatory Sachi Montoya MD Work Phone: -[facility] Start: 11-07-2024 End: 11-07-2024 Results Review SACHI MONTOYA MD Work Phone: [facility] Start: 11-05-2024 End: 11-05-2024 Historical Summary SACHI MONTOYA MD Work Phone: [facility] [employer] Start: 11-05-2024 End: 11-05-2024 Patient encounter procedure SACHI MONTOYA MD Work Phone: [facility] [employer] Start: 08-18-2024 End: 08-18-2024 Office outpatient visit 10 minutes SACHI MONTOYA MD Work Phone: [email or web address] Start: 08-06-2024 End: 08-06-2024 ambulatory GINA PURDY [facility] Start: 06-11-2024 End: 06-11-[address] [facility] Start: 05-15-2024 End: 05-15-2024 ambulatory Gaby BEJARANO Work Phone: [facility] Work Phone: Start: 05-15-2024 End: 05-15-[address] Gina Herman MD -Nuclear Medicine, [facility] Work Phone: Start: 05-15-2024 End: 05-15-2024 ambulatory Gina Herman Facility:[facility] Start: 04-18-2024 End: 04-18-2024 Lab Only SACHI MONTOYA MD Work Phone: [email or web address] Start: 03-17-2024 End: 03-18-2024 Patient encounter procedure SACHI MONTOYA MD Work Phone: [email or web address] Start: 03-17-2024 Review SACHI Clemens MD Work Phone: [email or web address] Start: 02-26-2024 End: 02-26-2024 ambulatory GINA PURDY [facility] Start: 02-18-2024 End: 02-18-2024 ambulatory GINA HERMAN [facility] Start: 02-18-2024 End: 02-18-[address] Gina Herman MD -[facility] Work Phone: Start: 02-18-2024 End: 02-18-2024 ambulatory Gina Herman Facility:[facility] Start: 12-03-2023 End: 12-03-2023 Lab Only GABY OWEN CELL TENDER-C Work Phone: [employer] Start: 06-20-2023 End: 06-20-2023 Lab Only GABY OWEN CELL TENDER-C Work Phone: [employer] Start: 05-24-2023 End: 05-24-2023 Transition of Care GABY QUIQUE CELL TENDER-C Work Phone: [employer] Start: 05-23-2023 End: 05-23-2023 Patient encounter procedure GABY ORESTESETHANCHAI CELL TENDER-C Work Phone: [employer] Start: 05-21-2023 End: 05-21-2023 Lab Only GABY ORESTESETHANCHAI CELL TENDER-C Work Phone: [employer] Start: 05-17-2023 End: 05-17-2023 Follow-up encounter GABY MORANETHANCHAI CELL TENDER-C Work Phone: [employer] Start: 05-16-2023 End: 05-16-2023 Lab Only GABY OWEN CELL TENDER-C Work Phone: [employer] Start: 04-27-2023 End: 04-27-2023 Follow-up encounter GABY OWEN CELL TENDER-C Work Phone: [employer] Start: 04-19-2023 End: 04-19-2023 Lab Only GABY MORALESCHAI CELL TENDER-C [facility] Start: 04-18-2023 End: 04-18-2023 Office outpatient visit 25 minutes GABY SOFIADYLONETHANCHAI CELL TENDER-C Work Phone: [facility] Start: 04-18-2023 End: 04-18-2023 Patient encounter status Dee Steve [facility]; [facility] Start: 03-09-2021 End: 03-09-2021 Medication Refill/Order GABY SOFIARONENMARYER CELL TENDER-C Work Phone: [facility] Start: 02-21-2021 End: 02-21-2021 Office outpatient visit 10 minutes GABY MORALESMARYER CELL TENDER-C Work Phone: [facility] Start: 02-21-2021 End: 04-12-2021 Historical Summary GABY EMERYER CELL TENDER-C Work Phone: [facility] Start: 05-17-2015 End: 05-17-2015 Office outpatient visit 15 minutes GABY OWEN CELL TENDER-C Work Phone: [facility] Start: 04-30-2012 End: 04-30-2012 Patient encounter procedure GABY MORALESMARYER CELL TENDER-C Work Phone: [facility] Start: 12-15-2011 End: 12-15-2011 Patient encounter procedure GABY MORANETHANMARYER CELL TENDER-C Work Phone: [facility] Start: 09-18-2011 End: 09-18-2011 Follow-up encounter GABY OWEN CELL TENDER-C Work Phone: [facility] Start: 09-16-2011 End: 09-16-2011 Lab Only GABY OWEN CELL TENDER-C Work Phone: [facility] Start: 08-23-2011 End: 08-23-2011 Results Review GABY OWEN CELL TENDER-C Work Phone: [facility] Start: 08-22-2011 End: 08-22-2011 Patient encounter procedure GABY OWEN CELL TENDER-C Work Phone: [facility] Start: 08-22-2011 End: 08-22-2011 Routine gynecological examination GABY OWEN CELL TENDER-C Work Phone: [facility]; LAUREL Bizak [facility] Start: 08-22-2011 End: 08-22-2011 Historical Summary GABY OWEN CELL TENDER-C Work Phone: [facility] Patient encounter status ALEXA MONTOYA MD Work Phone: [facility]; [facility] Procedures Date Procedure Procedure Detail Performing Clinician Start: 11-05-2024 End: 11-05-2024 Dischrg meds reconciled w/current med list SACHI MONTOYA MD Work Phone: Start: 11-05-2024 End: 11-05-2024 No Known Past Surgical History SACHI MONTOYA MD Work Phone: Start: 05-15-2024 Radioisotope scan of parathyroid Gaby Owen CASH ANALYST-C Work Phone: Start: 05-15-2024 US scan of thyroid Rasheeda Owen CASH ANALYST-C Work Phone: Start: 03-17-2024 End: 03-17-2024 No Known Past Surgical History SACHI MONTOYA MD Work Phone: Start: 04-18-2023 End: 04-18-2023 Dischrg meds reconciled w/current med list GABY OWEN CELL TENDER-C Work Phone: Start: 04-18-2023 End: 04-18-2023 Obtaining screen pap smear GABY JIMÉNEZ CELL TENDER-C Work Phone: Start: 08-22-2011 End: 08-22-2011 Adacel GABY Abdalla CASH ANALYST-C Work Phone: Start: 08-22-2011 End: 08-22-2011 Breast Exam GABY EMERYGAEL Lianne CASH ANALYST-C Work Phone: Comment on above: Normal. Start: 08-22-2011 End: 08-22-2011 MALA (Digital Rectal Exam) GABY CORTES CELL TENDER-C Work Phone: Comment on above: Normal. Start: 08-22-2011 End: 08-22-2011 Obtaining screen pap smear SHANIKA Johnson Comment on above: Within Normal Limits . Start: 08-22-2011 End: 08-22-2011 Screening colonoscopy GABY EMERYGAEL CELL TENDER-C Work Phone: Comment on above: Discussed. Start: 08-22-2011 End: 08-22-2011 Stool for Occult Blood GABY SOFIABENJAMIN Johnson CELL TENDER-C Work Phone: Comment on above: Negative. Start: 05-17-2006 End: 05-17-2006 Screening mammography GABY EMERYGAEL CELL TENDER-C Work Phone: Comment on above: Within Normal Limits . Plan of Treatment Date Care Activity Detail Author Start: 03-17-2025 [facility] visit, estab Medical; ESTABLISHED PATIENT ROUTINE VISIT - [facility] Start: 17-Mar-2025 13:00-05:00 MD SACHI MONTOYA [facility]ointment [facility] Start: 11-21-2024 24 hour urine calciu m output measurement [facility] Start: 11-05-2024 Assay of thyroid stimulating hormone tsh TSH (68021) Start: 05-Nov-2024 13:34-04:00 Request [employer] [place] [facility]Bl[facility] 360.; [facility] [employer] [place] [facility]Bl[facility] 360. Start: 11-05-2024 Basic metabolic pane l calcium total BMP (81890) Start: 05-Nov-2024 13:34-04:00 Request [employer] [place] [facility]Bl[facility] 360.; [facility] [employer] [place] [facility]Bl[facility] 360. Start: 08-18-2024 Removal impacted cerumen irrigation/lvg unilat CERUMEN REMOVAL USING IRRIGATION/LAVAGE (82724) Start: 18-Aug-2024 Intent [employer]; [facility] NTQ-Data. Start: 04-18-2024 25 hydroxy includes fractions if performed VITAMIN D, 25 HYDROXY (87547) Start: 18-Apr-2024 13:04-05:00 Request [employer]; [facility] [employer]. Start: 04-18-2024 Assay of parathormone PTH, Int act (08218) Start: 18-Apr-2024 13:03-05:00 Request [employer]; [facility] [employer]. Start: 04-18-2024 Calcium total CALCIUM SERUM (05813) Start: 18-Apr-2024 13:02-05:00 Request [employer] [place] [facility] DepartmentMobile Shopping Solutions; [place] [employer] [facility] NTQ-Data. Start: 03-17-2024 [facility] visit, [facility] Medical; ESTABLISHED PATIENT ROUTINE VISIT - [facility] [employer] [facility] [employer] Start: 17-Mar-2024 13:30-05:00 MD SACHI MONTOYA Appointment Request [facility] [employer] Start: 12-03-2023 25 hydroxy includes fractions if performed VITAMIN D, 25 HYDROXY (70975) Start: 03-Dec-2023 13:00-04:00 Request [employer]; [employer] [facility] [employer]. Start: 12-03-2023 Calcium urine quantitative timed specimen URINE CALCIUM MARK TIMED (96193) Start: 03-Dec-2023 13:00-04:00 Request Comments: 24 hour [facility] [employer] [facility] [employer] [place] [facility] DepartmentBl[facility] 360. Comment on above: 24 hour Start: 06-22-2023 25 hydroxy includes fractions if performed VITAMIN D, 25 HYDROXY (43290) Start: 22-Jun-2023 Request [employer] [place] [facility] DepartmentBl[facility]of 360.; [employer] [facility] [employer]. Start: 06-22-2023 Calcium urine quantitative timed specimen URINE CALCIUM MARK TIMED (46945) Start: 22-Jun-2023 Request Comments: 24 hour [facility] [employer] [facility] [employer]. Comment on above: 24 hour Start: 05-21-2023 Assay of parathormone PTH, Int act (58060) Start: 21-May-2023 Request [facility] [employer].; [employer] [facility] [employer]. Start: 05-16-2023 Basic metabolic pane l calcium total BMP (94068) Start: 16-May-2023 Request [employer] [facility] [employer]. Start: 05-14-2023 Patient encounter procedure Medical; LAB ONLY - [facility] [employer]. Start: 14-May-2023 8:30 GORDO OWEN Appointment Request [facility] [employer]. Start: 05-10-2023 Basic metabolic pane l calcium total BMP (65929) Start: 10-May-2023 Request [employer] [facility] [employer]. Start: 04-18-2023 Screening digital breast tomosynthesis bi SCREENING MAMMOGRAPHY WITH TOMOSYNTHESIS (54807) 3D - Bilateral Start: 18-Apr-2023 Intent [employer].; [employer] [facility] [employer]. Start: 04-18-2023 Lipid panel LIPID PANEL (8 0061) Start: 18-Apr-2023 10:20 Request [employer].; [facility]. Start: 04-18-2023 Basic metabolic pane l calcium total BMP (30803) Start: 18-Apr-2023 10:20 [facility]; [facility]. Start: 04-18-2023 Cytp cerv/vag auto t hin layer prep mnl screen Hologic Thin Prep- do HPV testing if current path is ASCUS ([id number]) Start: 18-Apr-2023 10:08 Request [facility] Pharm[facility] [place] [facility]Bl[facility] 360.; [facility]. Start: 04-30-2012 Patient Education TINEA CRURIS Indication: TINEA CRURA (Renamed from Dermatophytosis of groin and perianal area) Start: 30-Apr-2012 Instruction Type: Patient Education [facility]; [facility] NTQ-Data. Start: 08-22-2011 Mammogram, screening MAMMOGRAM , SCREENING (69961) Start: 22-Aug-2011 Intent [facility] [employer] [place] [facility] DepartmentMobile Shopping Solutions; [facility]. Start: 08-22-2011 Patient Education [facility] [employer] [place] [facility] DepartmentMobile Shopping Solutions; [facility] [employer] [place] [facility] DepartmentBlueroof 360. Immunizations Immunization Date Immunization Notes Care Provider Randolph livingston 08-07-2013 measles, mumps and rubella virus vaccine GABY OWEN CELL TENDER-C Work Phone: [facility] [employer] [place] [facility] DepartmentMobile Shopping Solutions; [facility] 08-22-2011 tetanus toxoid, redu kailyn diphtheria toxoid, and acellular pertussis vaccine, adsorbed GABY OWEN CELL TENDER-C Work Phone: [facility] [employer] [place] [facility] DepartmentMobile Shopping Solutions; [facility] [employer] [place] [facility] DepartmentBlueroof 360. Comment on above: Site: Deltoid (Left) 08-22-2011 *IMMUNIZATION ADMIN ([id number]) GABY OWEN CELL TENDER-C Work Phone: [facility] [employer] [place] [facility] DepartmentMobile Shopping Solutions; [facility] [employer] [place] [facility] DepartmentBlueroof 360 influenza virus vaccine, unspecified formulation GABY OWEN CELL TENDER-C Work Phone: [facility] [employer] [place] [facility] DepartmentBl[facility]of 360.; [facility]. Comment on above: Refused. 02/21/2021 influenza virus vaccine, unspecified formulation SACHI MONTOYA MD Work Phone: [facility] [employer] [place] [facility] DepartmentBl[facility]of 360.; [facility]. Comment on above: Refused. 02/21/2021 influenza virus vaccine, unspecified formulation SACHI MONTOYA MD Work Phone: [facility] [employer] [place] [facility] DepartmentBl[facility]of 360.; [facility] [employer] [place] [facility] DepartmentBlueroof 360. Comment on above: Refused. 02/21/2021 Payers Date Payer Category Payer Unknown 2024 Self-pay [id number] Unknown [id number] Unknown [id number] [id number] Unknown [id number] Unknown [id number] [id number] Unknown [id number] [id number] Unknown [id number] [id number] [id number] Social History Date Type Detail Facility Alcohol Use: Alcohol Use: ; N ever used alcohol. [facility] [place] [facility]Bl[facility]of 360.; [facility] Highest Education Le cipriano Attained: Highest Education Level Attained: ; Less than high school. [employer] [facility] DepartmentMobile [facility]pping Solutions; [facility] Marital status: Marital status: ; . 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 [facility] [place] [facility] DepartmentBl[facility] 360.; [facility] Start: 1960 Female [facility] Start: 01-03-2024 Never smoked tobacco [facility] Less than high school [facility], [employer] [facility], [facility]. Work Phone: [facility], [employer].; [facility], [employer]. Work Phone: Start: 05-28-2024 Sex Female (finding) [facility] Sex Female [facility] Progress note 01-02-2025 Note Date & Type Note Facility 01-02-2025 Progress note [facility] Progress note 01-02-2025 Note Date & Type Note Facility 01-02-2025 Progress note Note Date/Time January 02, 2025 2:37pm [facility] [address] [place] [address] OFFICE VISIT Date of Service: 01/02/25 MR#: [id number] Acct: [id number] Name: KAREN GAUTHIER Rep #: [id number] : 1960 Provider: Dr. Osmany Mujica MD Age/Sex: 64/F Location: [facility] Status: Signed Intake Vital Signs 11/21/24 10:08 01/02/25 14:06 Height 5 ft 2 in Weight: 153 lb 153 lb BMI 28.0 BP 127/81 H 135/85 H Blood Pressure Location Rt brachial Rt brachial Position Sitting Sitting Respiration 17 17 Pulse 60 83 Pulse Source Monitor Monitor Pulse Oximetry (%) 98 96 Oxygen Delivery Method room air room air Intake Visit Reasons: discuss parathyroidectomy Chief Complaint: discuss parathyroidectomy Is patient in pain?: No Allergies amoxicillin Allergy (Intermediate, Verified 01/02/25 14:07) Rash Medications ?Medication ?Instructions ?Recorded ?Confirmed ?Type multivitamin 1 tab PO QAM 02/18/24 History sulfurzyme PO 02/18/24 01/02/25 History wolfberry PO 02/18/24 01/02/25 History redox PO 01/02/25 01/02/25 History young living ninja red PO 01/02/25 History Have you fallen in the past year?: No PFSH Medical History Hyperparathyroidism Otitis externa, fungal, right ear Family History (Updated 11/21/24 @ 10:08 by Saige Neville) Mother Hypertension Sister Breast cancer Hypertension Social History Smoking Status: Never smoker Electronic Cigarette Use: not used second hand exposure: No alcohol intake: never substance use type: does not use HPI HPI HPI: Patient is now a 64-year-old female who presents for further evaluation of her primary hyperparathyroidism. She was last seen 11/21/2024. She again is accompanied by her . They deny any health changes since her last visit. They state they were not made aware of the results for her recently completed 24-hour urine calcium testing that resulted 12/12/2024. Below is recapitulated from patient's prior visit for ease of review: Patient is a 63-year-old female who presents for evaluation of hyperparathyroidism. They are referred from PCP, Dr. Montoya and endocrinology, Dr. Herman. Patient presents to clinic today with her . Together they provide the history. They state that this evaluation began with finding of highcalcium over a year ago (estimated 15 months ago). Patient has no history of osteopenia or osteoporosis with normal Z-score reported on bone densitometry from 02/26/2024. Patient has no history of pathologic fractures. Patient has no history of kidney stones. Patient has nohistory of frequent dental caries or chipped teeth. Patient has no history of brittle fingernails. Patient has no history of GERD. Patient has no history ofhypertension. Additional symptoms include: Some forgetfulness, depression, and constipation (patient notes that depression is largely condition by caring for aging parents and constipation has been chronic and nonprogressive). Patient has no history of prior radiation exposure. Patient has no family history of other endocrinopathies Patient does not have a diet high in dairy. Patient's current labs are calcium: 10.9 mg/dL (11/05/2024) personal range: 10.7-11.3 with normal range of assay 8.7 to 10.3 mg/dL, Vitamin D: 63 ng/mL 04/21/2024,Ionized calcium: [Value]mg/dL [date], PTH: 162 pg/mL 08/06/2024 with personal range 100-162, Phosphorus: [Value] [date] Current medications include: No calcium supplementation. Imaging has been done thyroid ultrasound and DEXA imaging both completed 05/15/2024. Thyroid ultrasound showed evidence of bilateral subcentimeter thyroid nodules as well as a 0.6 cm hypoechoic area posterior to the left inferior pole. System may be was positive for a suspected adenoma of the left inferior position. Patient has not had renal imaging, however, she did have a urinary calcium of 477 milligrams per 24 hours which was obtained 02/26/2024. ROS General General: No weight change, appetite, fatigue, colon cancer, breast cancer or weakness HEENT HEENT: No difficulty swallowing, eye injury, eye surgery, swollen glands or hoarseness Endo Endocrine: Yes thyroid disease and Hair loss; No diabetes mellitus, thyroid cancer, heat intolerance or cold intolerance Skin Skin: No rash or changing moles Musc Musculoskeletal: No back problems, arthritis, rheumatoid arthritis, gout or joint pain Cardio Cardiovascular: No murmur, pacemaker, heart disease, atrial fibrillation, high blood pressure, heart attack, heart stent, palpitations, shortness of breath with exertion or chest pain Psych Psychiatric: No depression, anxiety or hearing voices Resp Respiratory: No shortness of breath, No sleep apnea, No cough, No COPD, No asthma, No emphysema and No wheezing Gastro Gastrointestinal: No abdominal pain, No nausea or vomiting, No diarrhea, No constipation, No blood in stool, No acid reflux, No hemorrhoids, No ulcers, No gallbladder problem and No black,tarry stools Sachin Hematologic: No blood thinners, No blood disorders, No bleeding, No anemia and No blood clots Neuro Neurologic: No system reviewed and no additional complaints, except as documented, No as per HPI, No abnormal gait, No abnormal hearing, No abnormal movements, No abnormal speech, No behavioral changes, No burning sensations, No confusion, No convulsions, No disequilibrium, No dizziness, No localized weakness, No frequent falls, No headache(s), No lack of coordination, No loss of vision, No memory loss, No numbness, No other visual disturbances, No radicular pain, No restless legs, No sensory deficit, No syncope, No tingling, No tremor(s), No weakness and No other Exam Const General: cooperative and comfortable Orientation: awake and oriented x3 Other: Reserved Neck Other: Slender, no nodularity, no palpable lymphadenopathy Assessment and Plan Assessment and Plan (1) Primary hyperparathyroidism: Status: Acute Comment: Patient is 63-year-old female who presents for surgical consultation related to a diagnosis of primary hyperparathyroidism. After careful review of her outside records and eliciting a thorough history during today's visit I concur with the diagnosis of primary hyperparathyroidism. Through her history it appears she is virtually asymptomatic from this condition. She is reporting some depression, but appears to have a more proximal cause through her social stressors. When I assess her for surgical indications given asymptomatic primary hyperparathyroidism I find only 1 calcium level that fulfills criteria of being 1 mg/dL or more over the range of normal. She has no evidence of bone demineralization or kidney stones. Initially, her urinary calcium was not available to me but outside records were later uncovered that showed this to be elevated at 477. Therefore, given this very borderline picture I recommended repeating the 24-hour urine calcium and if this remains significantly elevated would likely recommend proceeding with parathyroidectomy. However, if this is repeated and found to be within normal limits would likely recommend additional surveillance. Mr. Gauthier declares they would like to avoid surgery if at all possible, but are willing to proceed if indicated. Positively, if we do elect to proceed with surgery patient appears to have not only localization but Co- localization of her ultrasound and sestamibi imaging which suggest a left inferior parathyroid adenoma. Update 01/02/2025: Discussed results of recent 24-hour urinary calcium testing that returned 507 up from 477 previously. I stated that this result taken together with her history of hypercalcemia places her squarely in the position to recommend surgical parathyroidectomy. I stated that my intent was to help mitigate Mrs. Gauthier's risk for nephrolithiasis as well as pathologic wear/demineralization of her skeletal mass over time. A hand-drawn schematic was used to illustrate the steps of the procedure including a explanation on the use of intraoperative PTH monitoring to verify cure. I also explained how this has implications for the extent and duration of the procedure if the PTH does not come down appropriately to meet criteria. I shared how this could have implications both for patient's postoperative disposition as well as her need for postoperative medication. I then immediately followed this with a discussion of procedure specific risks including discussions on hypoparathyroidism and recurrent laryngeal nerve injury. I shared about my routine use of intraoperative nerve monitoring to minimize the risk of the latter issue. Patient's is more vocal than patient but she also verbally provided her agreement to proceed as recommended. Plan: Parathyroidectomy with intraoperative PTH and nerve monitoring. Outpatient disposition anticipated. Coding Level of Care Code Off vis,est,level 3 Diagnoses Primary hyperparathyroidism E21.0 Clinical Quality Measures Falls Risk Screening/Assistive Devices Have you fallen in the past year?: No 01/02/25 1704 <Electronically signed by Mita Mujica MD> Date _ Mita Mujica MD Cosigner Signature: Date (if applicable) CC: Dr. Gina Herman MD; Sachi Montoya MD ~ [facility] Work Phone: Evaluation note 11-21-2024 Note Date & Type Note Facility 11-21-2024 Evaluation note Diagnosis Onset Date Resolution Primary hyperparathyroidism acute November 21, 2024 9:40am Primary hyperparathyroidism acute January 02, 2025 1:53pm [facility] Work Phone: Nuclear medicine Diagnostic study note 05-15-2024 Note Date & Type Note Facility 05-15-2024 Nuclear medicine Diagnostic study note [facility] Imaging Services [address] [place] [address] [id number] Parathyroid Scan MR#: [id number] Acct: [id number] Name: KAREN GAUTHIER Rep #: [id number] : 1960 F 63 From: Ananth Vu MD PCP: DARCI Mckeon Status: R EG CLI Study:Parathyroid Scan Date of Exam: Exam# [id number] Ordering Dr: Derrell Herman i, MD PROCEDURE: PARATHYROID SCAN REASON FOR EXAM: Hypercalcemia. COMPARISON: None. TECHNIQUE: 25 mCi of sestamibi were given intravenously. Imaging of the parathyroid gland was obtained. FINDINGS: Thyroid bed: Activity present Persistent uptake is seen inferior to the left lobe of the thyroid. This may represent a parathyroid adenoma. NM/Parathyroid Scan IMPRESSION: Increased uptake along the inferior aspect of the left lobe of the thyroid. This is also present on the delayed imaging suggestive of adenoma. Reading Location: [id number] CC: DARCI Owen; Dr. Gina Herman MD ~ [facility]: Signed [facility] Radiology Diagnostic study note 05-15-2024 Note Date & Type Note Facility 05-15-2024 Radiology Diagnostic study note [facility] Imaging Services [address] [place] [address] [id number] Thyroid MR#: [id number] Acct: [id number] Name: KAREN GAUTHIER Rep #: [id number] : 1960 F [id number] From: Joanna Bailey MD PCP: DARCI Mckeon Status: R EG CLI Study:Thyroid Date of Exam: 05/15/24 Exam# [id number] Ordering Dr: Derrell Herman i, MD PROCEDURE: ULTRASOUND THYROID REASON FOR EXAM: Abnormal parathyroid study. TECHNIQUE: Real-time grayscale and color flow imaging was performed along with routine image documentation. Cine imaging was also performed of the bilateral thyroid lobes. COMPARISON: None. FINDINGS: Right thyroid lobe measures 3.4 x 1.3 x 1.4 cm. Left thyroid lobe measures 3.9 x 1.6 x 1.8 cm. Isthmus thickness is 0.28 cm. Thyroid Size: Normal. Lobulated contour. Background Echotexture: Heterogeneous Thyroid Nodules: Bilateral. Right NODULE: Inferior pole, solid, 0.6 x 0.6 x 0.7 cm, well-circumscribed, hyperechoic, rounded, no calcifications, TR 3. Left NODULE: Inferior pole, mixed cystic and solid, 0.7 x 0.7 x 0.5 cm, well-circumscribed, mixed hypoechoic and anechoic, wider than tall, no calcifications, TR 2. US/Thyroid IMPRESSION: A TR 3 category micronodule in the right inferior pole. No FNA warranted. A TR 2 category micronodule in the left inferior pole. No FNA warranted. A small hypoechoic micronodule inferior to the left thyroid lobe measuring 0.6 cm may represent small lymph node. Follow-up ultrasound recommended in 12 months. Reading Location: [place] [address] CC: DARCI Owen; Dr. Gina Herman MD ~ Sheep [employer]iller: Signed [facility] Evaluation note 02-18-2024 Note Date & Type Note Facility 02-18-2024 Evaluation note Diagnosis Onset Date Resolution Hypercalcemia acute February 7:52am Hyperparathyroidism acute Decem 2023 7:52am [facility] Work Phone: Evaluation note Note Date & Type Note Facility [facility] Reason for referral (narrative) Note Date & Type Note Facility Reason for referral (narrative) No reason for referral information available [facility] Work Phone: Family History No Family History Records Found Brother (s) Status:Active Comments:3. In [place]. Daughter (s) Status:Active Comments:3. In [place]. Father Status:Active Comments: d. age 65 accident Mother Status:Active Comments:hyptn Sister (s) Status:Active Comments:In good health. Son (s) Status:Active Comments:3. [facility]. Brother (s) Status:Active Comments:3. In [facility]. Daughter (s) Status:Active Comments:3. In [place] [facility]. Father Status:Active Comments: d. age 65 accident Mother Status:Active Comments:hyptn Sister (s) Status:Active Comments:In good health. Son (s) Status:Active Comments:3. [place] [facility]. Brother (s) Status:Active Comments:3. In [place] [facility]. Daughter (s) Status:Active Comments:3. In [place] [facility]. Father Status:Active Comments: d. age 65 accident Mother Status:Active Comments:hyptn Sister (s) Status:Active Comments:In good health. Son (s) Status:Active Comments:3. In [place]. Brother (s) Status:Active Comments:3. In [facility]. Daughter (s) Status:Active Comments:3. In [facility]. Father Status:Active Comments: d. age 65 accident Mother Status:Active Comments:hyptn Sister (s) Status:Active Comments:In good health. Son (s) Status:Active Comments:3. In [place]. Brother (s) Status:Active Comments:3. In [place] [facility]. Daughter (s) Status:Active Comments:3. In [place] [facility]. Father Status:Active Comments: d. age 65 accident Mother Status:Active Comments:hyptn Sister (s) Status:Active Comments:In good health. Son (s) Status:Active Comments:3. In [place]. Brother (s) Status:Active Comments:3. In [facility]. Daughter (s) Status:Active Comments:3. In [place] [facility]. Father Status:Active Comments: d. age 65 accident Mother Status:Active Comments:hyptn Sister (s) Status:Active Comments:In good health. Son (s) Status:Active Comments:3. In [place] [facility]. Brother (s) Status:Active Comments:3. In [facility]. Daughter (s) Status:Active Comments:3. In [place]. Father Status:Active Comments: d. age 65 accident Mother Status:Active Comments:hyptn Sister (s) Status:Active Comments:In good health. Son (s) Status:Active Comments:3. In [facility]. Brother (s) Status:Active Comments:3. In [facility]. Daughter (s) Status:Active Comments:3. In [facility]. Father Status:Active Comments: d. age 65 accident Mother Status:Active Comments:hyptn Sister (s) Status:Active Comments:In good health. Son (s) Status:Active Comments:3. In [place] [facility]. Brother (s) Status:Active Comments:3. In [facility]. Daughter (s) Status:Active Comments:3. In [facility]. Father Status:Active Comments: d. age 65 accident Mother Status:Active Comments:hyptn Sister (s) Status:Active Comments:In good health. Son (s) Status:Active Comments:3. In [facility]od health. Brother (s) Status:Active Comments:3. In [facility]od health. Daughter (s) Status:Active Comments:3. In [facility]. Father Status:Active Comments: d. age 65 accident Mother Status:Active Comments:hyptn Sister (s) Status:Active Comments:In good health. Son (s) Status:Active Comments:3. In [facility]. Brother (s) Status:Active Comments:3. In [facility]. Daughter (s) Status:Active Comments:3. In [facility]. Father Status:Active Comments: d. age 65 accident Mother Status:Active Comments:hyptn Sister (s) Status:Active Comments:In good health. Son (s) Status:Active Comments:3. In [place]. Brother (s) Status:Active Comments:3. In [facility]. Daughter (s) Status:Active Comments:3. In [facility]. Father Status:Active Comments: d. age 65 accident Mother Status:Active Comments:hyptn Sister (s) Status:Active Comments:In good health. Son (s) Status:Active Comments:3. In [facility]. Brother (s) Status:Active Comments:3. In [facility] health. Daughter (s) Status:Active Comments:3. In [facility]. Father Status:Active Comments: d. age 65 accident Mother Status:Active Comments:hyptn Sister (s) Status:Active Comments:In good health. Son (s) Status:Active Comments:3. In [facility]od [facility]. Brother (s) Status:Active Comments:3. In [facility] ood health. Daughter (s) Status:Active Comments:3. In [facility]. Father Status:Active Comments: d. age 65 accident Mother Status:Active Comments:hyptn Sister (s) Status:Active Comments:In good health. Son (s) Status:Active Comments:3. In [place] [facility]. Brother (s) Status:Active Comments:3. In [facility]. Daughter (s) Status:Active Comments:3. In [facility]. Father Status:Active Comments: d. age 65 accident Mother Status:Active Comments:hyptn Sister (s) Status:Active Comments:In good health. Son (s) Status:Active Comments:3. In [place] [facility]. Brother (s) Status:Active Comments:3. In [place] [facility]. Daughter (s) Status:Active Comments:3. In [facility]. Father Status:Active Comments: d. age 65 accident Mother Status:Active Comments:hyptn Sister (s) Status:Active Comments:In good health. Son (s) Status:Active Comments:3. In [facility]. Brother (s) Status:Active Comments:3. In [facility]. Daughter (s) Status:Active Comments:3. In [facility]. Father Status:Active Comments: d. age 65 accident Mother Status:Active Comments:hyptn Sister (s) Status:Active Comments:In good health. Son (s) Status:Active Comments:3. In [place] [facility]. Brother (s) Status:Active Comments:3. In [place] [facility]. Daughter (s) Status:Active Comments:3. In [place] [facility]. Father Status:Active Comments: d. age 65 accident Mother Status:Active Comments:hyptn Sister (s) Status:Active Comments:In good health. Son (s) Status:Active Comments:3. In [place] [facility]od [facility]. Brother (s) Status:Active Comments:3. In [facility]. Daughter (s) Status:Active Comments:3. In [facility]. Father Status:Active Comments: d. age 65 accident Mother Status:Active Comments:hyptn Sister (s) Status:Active Comments:In good health. Son (s) Status:Active Comments:3. In [facility]od [facility]. Brother (s) Status:Active Comments:3. In [facility]. Daughter (s) Status:Active Comments:3. In [place] [facility]. Father Status:Active Comments: d. age 65 accident Mother Status:Active Comments:hyptn Sister (s) Status:Active Comments:In good health. Son (s) Status:Active Comments:3. In [place] [facility]. Brother (s) Status:Active Comments:3. In [place] [facility]. Daughter (s) Status:Active Comments:3. In [place] [facility]. Father Status:Active Comments: d. age 65 accident Mother Status:Active Comments:hyptn Sister (s) Status:Active Comments:In good health. Son (s) Status:Active Comments:3. In [place] [facility]. Brother (s) Status:Active Comments:3. In [place]. Daughter (s) Status:Active Comments:3. In [place]. Father Status:Active Comments: d. age 65 accident Mother Status:Active Comments:hyptn Sister (s) Status:Active Comments:In good health. Son (s) Status:Active Comments:3. In [place] [facility]. Brother (s) Status:Active Comments:3. In [place] [facility]. Daughter (s) Status:Active Comments:3. In [place] [facility]. Father Status:Active Comments: d. age 65 accident Mother Status:Active Comments:hyptn Sister (s) Status:Active Comments:In good health. Son (s) Status:Active Comments:3. In [place]. Brother (s) Status:Active Comments:3. In [place] [facility]. Daughter (s) Status:Active Comments:3. In [place] [facility]. Father Status:Active Comments: d. age 65 accident Mother Status:Active Comments:hyptn Sister (s) Status:Active Comments:In good health. Son (s) Status:Active Comments:3. In [place] [facility]. Brother (s) Status:Active Comments:3. In [place] [facility]. Daughter (s) Status:Active Comments:3. In [place] [facility]. Father Status:Active Comments: d. age 65 accident Mother Status:Active Comments:hyptn Sister (s) Status:Active Comments:In good health. Son (s) Status:Active Comments:3. In [place]. Brother (s) Status:Active Comments:3. In [place] [facility]. Daughter (s) Status:Active Comments:3. In [place]. Father Status:Active Comments: d. age 65 accident Mother Status:Active Comments:hyptn Sister (s) Status:Active Comments:In good health. Son (s) Status:Active Comments:3. In [place]. Brother (s) Status:Active Comments:3. In [place] [facility]. Daughter (s) Status:Active Comments:3. In [place] [facility]. Father Status:Active Comments: d. age 65 accident Mother Status:Active Comments:hyptn Sister (s) Status:Active Comments:In good health. Son (s) Status:Active Comments:3. In [place] [facility]. Brother (s) Status:Active Comments:3. In [place] [facility]. Daughter (s) Status:Active Comments:3. In [place]. Father Status:Active Comments: d. age 65 accident Mother Status:Active Comments:hyptn Sister (s) Status:Active Comments:In good health. Son (s) Status:Active Comments:3. In [place]. Brother (s) Status:Active Comments:3. In [place] [facility]. Daughter (s) Status:Active Comments:3. In [place] [facility]. Father Status:Active Comments: d. age 65 accident Mother Status:Active Comments:hyptn Sister (s) Status:Active Comments:In good health. Son (s) Status:Active Comments:3. In [place] [facility]. Brother (s) Status:Active Comments:3. In [place] [facility]. Daughter (s) Status:Active Comments:3. In [place] [facility]. Father Status:Active Comments: d. age 65 accident Mother Status:Active Comments:hyptn Sister (s) Status:Active Comments:In good health. Son (s) Status:Active Comments:3. In [place] [facility]. Brother (s) Status:Active Comments:3. In [place]. Daughter (s) Status:Active Comments:3. In [place]. Father Status:Active Comments: d. age 65 accident Mother Status:Active Comments:hyptn Sister (s) Status:Active Comments:In good health. Son (s) Status:Active Comments:3. In [place]. Relationship Condition Age at Onset Recorded Date/T sim mother Hypertension Unknown sister Malignant neoplasm of breast Unknown Hypertension Unknown Brother (s) Status:Active Comments:3. In [place] [facility]. Daughter (s) Status:Active Comments:3. [place]. Father Status:Active Comments: d. age 65 accident Mother Status:Active Comments:hyptn Sister (s) Status:Active Comments:In good health. Son (s) Status:Active Comments:3. In [place]. Brother (s) Status:Active Comments:3. In [place]. Daughter (s) Status:Active Comments:3. [place]. Father Status:Active Comments: d. age 65 accident Mother Status:Active Comments:hyptn Sister (s) Status:Active Comments:In good health. Son (s) Status:Active Comments:3. [place]. Brother (s) Status:Active Comments:3. [place]. Daughter (s) Status:Active Comments:3. [place]. Father Status:Active Comments: d. age 65 accident Mother Status:Active Comments:hyptn Sister (s) Status:Active Comments:In good health. Son (s) Status:Active Comments:3. In [employer] [facility]. Chief Complaint and Reason for Visit Chief Complaint Admit Date Parathyroid February 18, 2024 7 :52am Hyperparathyroidism, unspecified uar 2024 9:33am Reason for Visit Admit Date Hypercalcemia February 18, 2024 7 :52am Hyperparathyroidism February 18, 2024 7 :52am Chief Complaint Admit Date PARATHYROID- SELF PAY November 21 9:40am Chief Complaint Admit Date PARATHYROID- SELF PAY November 21 9:40am discuss parathyroidectomy January 02, 2025 1:53pm Reason for Visit Admit Date Primary hyperparathyroidism November 9:40am Primary hyperparathyroidism December 1:53pm Summary Purpose Advance Directives No Advanced Directives Records FoundNo Advanced Directives Records Found Additional Source Comments Care Teams (unrecognized sec tion and content) Team Status: Active Member Role Status Dates DARCI Mckeon NP Primary Care Provider Acti ve Team Status: Inactive Member Role Status Dates DARCI Mckeon NP Primary Care Provider Acti ve Start: February 18, 2024 End: February 18, 2024 Gaby Hofstetter CASH ANALYST, CASH ANALYST-C Referring Provider Active Start: February 18, 2024 End: February 18, 2024 Dr. Gina Herman MD Attending Provider Active Sta rt: February 18, 2024 End: February 18, 2024 Team Status: Inactive Member Role Status Dates Gaby Owen NP, CASH ANALYST-C Primary Care Provider Acti ve Start: May 15, 2024 End: May 15, 2024 Dr. Gina Herman MD Attending Provider Active Sta rt: May 15, 2024 End: May 15, 2024 Dr. Gina Herman MD Referring Provider Active Sta rt: May 15, 2024 End: May 15, 2024 Team Status: Active Member Role/Relationship Status Dates Sachi Montoya MD Primary Care Provider Active Team Status: Inactive Member Role/Relationship Status Dates Dr. Mita Mujica MD Attending Provider Active Start: November 21, 2024 End: November 21, 2024 Sachi Montoya MD Primary Care Provider Active Start: November 21, 2024 End: November 21, 2024 Sachi Montoya MD Referring Provider Active S tart: November 21, 2024 End: November 21, 2024 Team Status: Active Member Role/Relationship Status Dates Sachi Montoya MD Primary care physician Active Team Status: Inactive Member Role/Relationship Status Dates Dr. Mita Mujica MD Attending physician Active Start: November 21, 2024 End: November 21, 2024 Sachi Montoya MD Primary care physician Active Start: November 21, 2024 End: November 21, 2024 Sachi Montoya MD Referring Provider Active S tart: November 21, 2024 End: November 21, 2024 Team Status: Inactive Member Role/Relationship Status Dates Sachi Montoya MD Primary care physician Active Start: January 02, 2025 End: January 02, 2025 Sachi Montoya MD Referring Provider Active S tart: January 02, 2025 End: January 02, 2025 Dr. Mita Mujica MD Attending physician Active Start: January 02, 2025 End: January 02, 2025 Goals (unrecognized section and content) Goals may be documented in a n alternate sectionGoals may be documented in an alternate sectionGoals may be documented in an alternate section INFORMATION SOURCE (unrecogn ized section and content) DATE CREATED AUTHOR 01/18/2025 [facility] DATE CREATED AUTHOR AUTHOR'S ORGANIZ ATION 01/20/2025 [facility] FOR RECORDS PERTAINING TO PATIENTS WHO ARE OR HAVE BEEN ENROLLED IN A CHEMICAL DEPENDENCY/SUBSTANCEABUSE PROGRAM, SOME INFORMATION MAY BE OMITTED. This clinical summary was aggregated from multiple sources. Caution should be exercised in using it in the provision of clinical care. This summary normalizes information from multiple sources, and as a consequence, information in this document may materially change the coding, format and clinical context of patient data. In addition, data may be omitted in some cases. CLINICAL DECISIONS SHOULD BE BASED ON THE PRIMARY CLINICAL RECORDS. [facility] [employer] [facility]. provides no warranty or guarantee of the accuracy or completeness of information in this document.
[2025-01-28] MEDS: Lactated Ringers 1,000 ML 15 ML IV (06:36)
[2025-01-28 06:42] LABS: PTHIN 179 pg/mL (11-61)
--- NOTE | 2025-01-28 06:42 | PCM.PRE.AN2 ---
ASA Classification* ASA Classification ASA Classification: 2 (HTN, SELWYN) Assessment & Plan Anesthesia* Anesthesia Assessment Anesthesia Assessment: Discussed sedation and/or anesthesia options, risks, benefits, and alternatives with patient/parents/legal guardian/POA. Questions invited. The patient/parents/legal guardian/POA seems to understand and agrees to proceed with anesthesia plan. Reviewed the physical assessment, medical history, allergy history and patient home medications list prior to surgery/procedure/anesthetic and documented any changes. Performed airway and anesthesia risk assessments. 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 When Was Last Pacemaker Check QUESTION #4 FULL TEXT: You/Your Family Experience fever (hyperthermia) with Anesthesia Last Oral Intake Last Oral intake: Last Oral Intake NPO since 23:00 01/28/25 06:29 Meds taken in AM with sips of No 01/28/25 06:29 water? Meds patient instructed to take am of surgery PONV PONV - skidder lever operator: PONV - skidder lever operator Female No 01/14/25 10:23 HX of Motion Sickness No 01/14/25 10:23 HX of N/V After Surgery No 01/14/25 10:23 Non-Smoker Yes 01/14/25 10:23 Duration of Surgery greater Yes 01/14/25 10:23 than 60 minutes Number of Risk Factors 2 01/14/25 10:23 PONV Score Moderate Risk 01/14/25 10:23 Height & Weight Height & Weight: Anesthesia: Height & Weight Height 5 ft 2 in 01/28/25 06:29 Weight: 69 kg 01/28/25 06:29 Body Mass Index (BMI) 27.8 01/28/25 06:29 Respiratory Assessment Respiratory Assessment - skidder lever operator: Respiratory Tract Infection Hx - skidder lever operator Hx Respiratory Tract Infection No: DRY COUGH 01/14/25 10:23 STOP Sleep Apnea STOP Sleep Apnea - skidder lever operator: STOP Sleep Apnea - skidder lever operator Hx Hypertension Yes: NO MED FOR 1 MONTH 01/14/25 10:23 Hx Sleep Apnea No 01/14/25 10:23 CPAP BIPAP Do you snore loudly (louder No 01/14/25 10:23 than talking or can be heard Do you often feel tired/ Yes 01/14/25 10:23 fatigued/ sleepy during daytime? Has anyone observed you stop No 01/14/25 10:23 breathing during sleep? STOP Results Positive 01/14/25 10:23 QUESTION #5 FULL TEXT : Do you snore loudly (louder than talking or can be heard through closed doors)? 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 Specify any problems Hx of Preganancy in last 3 No 01/14/25 10:23 Months Nurse Filling Out Transfusion DSCHRIBER 01/14/25 10:23 & Questions: Date: 01/14/25 01/14/25 10:23 Time: 10:01/14/25 10:23 Patient unable to answer at this time (ie. confused, unrespo /Reproduction History /Reproductive History - skidder lever operator: /Reproductive Hx- skidder lever operator Hx Now No 01/14/25 10:23 Gestational Age (in weeks): EDC: Hx Hx Para Hx Section SAB No 01/14/25 10:23 Does the father of the baby or his family experience fever w Father of the baby Malignant Hypertension history comment Active Medications Active Medications: Current Medications Generic Name Dose Route Start Last Admin Trade Name Freq PRN Reason Stop Dose Admin Lactated Ringer's 1,000 mls @ 15 mls/hr 01/28/25 06:00 01/28/25 06:36 IV 15 mls/hr .Q48H JUDITH Administration PFSH Medical History (Updated 01/14/25 @ 10:32 by Eli Houston) Wears glasses Post-menopausal Depression Constipation Shortness of breath on exertion Non-smoker Leg cramps Hypertension Hyperparathyroidism Otitis externa, fungal, right ear Home Medications Medication Instructions Recorded Last Taken Type multivitamin 1 tab PO QAM 02/18/24 Unknown History sulfurzyme 2 cap PO DAILY 02/18/24 Unknown History redox 2 oz PO TID 01/02/25 Unknown History young living ninja red 2 oz PO DAILY 01/02/25 Unknown History 717 2 cap PO DAILY 01/14/25 Unknown History Allergy/AdvReac Type Severity Reaction Status Date / Time amoxicillin Allergy Intermediate Rash Verified 01/28/25 06:10 Family History (Updated 11/21/24 @ 10:08 by Saige Neville) Mother Hypertension Sister Breast cancer Hypertension Surgical History (Updated 01/14/25 @ 10:32 by Eli Houston) Hx of wisdom tooth extraction Social History Smoking Status: Never smoker Electronic Cigarette Use: not used second hand exposure: No alcohol intake: never substance use type: does not use Review of Systems (Anesthesia) ROS Narrative System reviewed and no additional complaints, except as documented. Physical Exam Const alert, oriented x3 and average body habitus Resp normal respiratory effort, normal air movement and clear to auscultation bilaterally Cardio regular rate, regular rhythm and no murmurs; Negative for diaphoretic
--- NOTE | 2025-01-28 07:17 | HP.PCM_ITS ---
History and Physical Date of Admission: 01/28/25 Date of Service: 01/02/25 MR#: [id number] Acct: [id number] Name: CAROLYNE GAUTHIER Rep #: [id number] : 1960 Provider: Dr. Osbaldo Frye MD Age/Sex: 64/F Location: [facility] Status: Signed Intake Vital Signs 11/21/2509:08 01/02/2514:06 Height 5 ft 2 in Weight: 153 lb 153 lb BMI 28.0 BP 127/81 H 135/85 H Blood Pressure Location Rt brachial Rt brachial Position Sitting Sitting Respiration 17 17 Pulse 60 83 Pulse Source Monitor Monitor Pulse Oximetry (%) 98 96 Oxygen Delivery Method room air room air Intake Visit Reasons: discuss parathyroidectomy Chief Complaint: discuss parathyroidectomy Is patient in pain?: No Allergies amoxicillin Allergy (Intermediate, Verified 01/02/25 14:07) Rash Medications Medication Instructions Recorded Confirmed Type multivitamin 1 tab PO QAM 02/18/24 01/02/25 History sulfurzyme PO 02/18/24 01/02/25 History wolfberry PO 02/18/24 01/02/25 History redox PO 01/02/25 01/02/25 History young living ninja red PO 01/02/25 History Have you fallen in the past year?: No PFSH Medical History Hyperparathyroidism Otitis externa, fungal, right ear Family History (Updated 11/21/24 @ 10:08 by Saige Neville) Mother Hypertension Sister Breast cancer Hypertension Social History Smoking Status: Never smoker Electronic Cigarette Use: not used second hand exposure: No alcohol intake: never substance use type: does not use HPI HPI HPI: Patient is now a 64-year-old female who presents for further evaluation of her primary hyperparathyroidism. She was last seen 11/21/2024. She again is accompanied by her . They deny any health changes since her last visit. They state they were not made aware of the results for her recently completed 24-hour urine calcium testing that resulted 12/12/2024. Below is recapitulated from patient's prior visit for ease of review: Patient is a 63-year-old female who presents for evaluation of hyperpa rathyroidism. They are referred from PCP, Dr. Montoya and endocrinology, Dr. Herman. Patient presents to clinic today with her . Together they provide the history. They state that this evaluation began with finding of high calcium over a year ago (estimated 15 months ago). Patient has no history of osteopenia or osteoporosis with normal Z-score reported on bone densitometry from 02/26/2024. Patient has no history of pathologic fractures. Patient has no history of kidney stones. Patient has no history of frequent dental caries or chipped teeth. Patient has no history of brittle fingernails. Patient has no history of GERD. Patient has no history of hypertension. Additional symptoms include: Some forgetfulness, depression, and constipation (patient notes that depression is largely condition by caring for aging parents and constipation has been chronic and nonprogressive). Patient has no history of prior radiation exposure. Patient has no family history of other endocrinopathies Patient does not have a diet high in dairy. Patient's current labs are calcium: 10.9 mg/dL (11/05/2024) personal range: 10.7- 11.3 with normal range of assay 8.7 to 10.3 mg/dL, Vitamin D: 63 ng/mL 04/21/2024, Ionized calcium: [Value]mg/dL [date], PTH: 162 pg/mL 08/06/2024 with personal range 100-162, Phosphorus: [Value] [date] Current medications include: No calcium supplementation. Imaging has been done thyroid ultrasound and DEXA imaging both completed 05/15/2024. Thyroid ultrasound showed evidence of bilateral subcentimeter thyroid nodules as well as a 0.6 cm hypoechoic area posterior to the left inferior pole. System may be was positive for a suspected adenoma of the left inferior position. Patient has not had renal imaging, however, she did have a urinary calcium of 477 milligrams per 24 hours which was obtained 02/26/2024. ROS General General: No weight change, appetite, fatigue, colon cancer, breast cancer or weakness HEENT HEENT: No difficulty swallowing, eye injury, eye surgery, swollen glands or hoarseness Endo Endocrine: Yes thyroid disease and Hair loss; No diabetes mellitus, thyroid cancer, heat intolerance or cold intolerance Skin Skin: No rash or changing moles Musc Musculoskeletal: No back problems, arthritis, rheumatoid arthritis, gout or joint pain Cardio Cardiovascular: No murmur, pacemaker, heart disease, atrial fibrillation, high blood pressure, heart attack, heart stent, palpitations, shortness of breath with exertion or chest pain Psych Psychiatric: No depression, anxiety or hearing voices Resp Respiratory: No shortness of breath, No sleep apnea, No cough, No COPD, No asthma, No emphysema and No wheezing Gastro Gastrointestinal: No abdominal pain, No nausea or vomiting, No diarrhea, No constipation, No blood in stool, No acid reflux, No hemorrhoids, No ulcers, No gallbladder problem and No black,tarry stools Sachin Hematologic: No blood thinners, No blood disorders, No bleeding, No anemia and No blood clots Neuro Neurologic: No system reviewed and no additional complaints, except as documented, No as per HPI, No abnormal gait, No abnormal hearing, No abnormal movements, No abnormal speech, No behavioral changes, No burning sensations, No confusion, No convulsions, No disequilibrium, No dizziness, No localized weakness, No frequent falls, No headache(s), No lack of coordination, No loss of vision, No memory loss, No numbness, No other visual disturbances, No radicular pain, No restless legs, No sensory deficit, No syncope, No tingling, No tremor(s), No weakness and No other Exam Const General: cooperative and comfortable Orientation: awake and oriented x3 Other: Reserved Neck Other: Slender, no nodularity, no palpable lymphadenopathy Assessment and Plan Assessment and Plan (1) Primary hyperparathyroidism: Status: Acute Comment: Patient is 63-year-old female who presents for surgical consultation related to a diagnosis of primary hyperparathyroidism. After careful review of her outside records and eliciting a thorough history during today's visit I concur with the diagnosis of primary hyperparathyroidism. Through her history it appears she is virtually asymptomatic from this condition. She is reporting some depression, but appears to have a more proximal cause through her social stressors. When I assess her for surgical indications given asymptomatic p rimary hyperparathyroidism I find only 1 calcium level that fulfills criteria of being 1 mg/dL or more over the range of normal. She has no evidence of bone demineralization or kidney stones. Initially, her urinary calcium was not available to me but outside records were later uncovered that showed this to be elevated at 477. Therefore, given this very borderline picture I recommended repeating the 24-hour urine calcium and if this remains significantly elevated would likely recommend proceeding with parathyroidectomy. However, if this is repeated and found to be within normal limits would likely recommend additional surveillance. Mr. Gauthier declares they would like to avoid surgery if at all possible, but are willing to proceed if indicated. Positively, if we do elect to proceed with surgery patient appears to have not only localization but Co- localization of her ultrasound and sestamibi imaging which suggest a left inferior parathyroid adenoma. Update 01/02/2025: Discussed results of recent 24-hour urinary calcium testing that returned 507 up from 477 previously. I stated that this result taken together with her history of hypercalcemia places her squarely in the position to recommend surgical parathyroidectomy. I stated that my intent was to help mitigate Mrs. Gauthier's risk for nephrolithiasis as well as pathologic wear/demineralization of her skeletal mass over time. A hand-drawn schematic was used to illustrate the steps of the procedure including a explanation on the use of intraoperative PTH monitoring to verify cure. I also explained how this has implications for the extent and duration of the procedure if the PTH does not come down appropriately to meet criteria. I shared how this could have implications both for patient's postoperative disposition as well as her need for postoperative medication. I then immediately followed this with a discussion of procedure specific risks including discussions on hypoparathyroidism and recurrent laryngeal nerve injury. I shared about my routine use of intraoperative nerve monitoring to minimize the risk of the latter issue. Patient's is more vocal than patient but she also verbally provided her agreement to proceed as recommended. Plan: Parathyroidectomy with intraoperative PTH and nerve monitoring. Outpatient disposition anticipated. I have examined the patient and the H&P has been reviewed. There are no clinical changes since date of exam. Procedure details as well as procedure indications were reviewed. Additionally I also reviewed postprocedure recovery expectations. All questions were taken from patient and her spouse. Consents were confirmed. Initial PTH is 179 pg/mL proceed to operating room for parathyroidectomy with intraoperative PTH and nerve monitoring.
[2025-01-28] MEDS: Midazolam 2 MG/2 ML Syringe IV (07:27)
--- NOTE | 2025-01-28 07:30 | PARA_PTH ---
PATIENT: CAROLYNE IBARRA LOC: [facility] [place] U#:[id number] AGE/SX: 64/F ROOM: RE01/28/[address]: Dr. Osbaldo Frye MD : 1960 BED: DIS: 01/28/2025 SPEC #: [id number] RECD: 01/28/25 09:08 STATUS: ADOLPH REQ #: [id number] RONDA: 01/28/25 07:[address]: Osbaldo Frye DEPT: SURGICAL PATHOLOGY RECD BY: Jax Velasquez ENTERED: 01/28/25 09:25 SP TYPE: PARATHY OTHR DR: Angely Montoya MD Tissues: A - Parathyroid B - Parathyroid C - Parathyroid D - Parathyroid Procedures: Frozen Section (charge) Frozen Section Add'l ([facility]) Surgery Specimen Level IV HEADER OPERATION: Parathyroidectomy &PTH monitoring with IONM PRE-OP DIAGNOSIS: Primary hyperparathyroidism TISSUE SUBMITTED: A- Parathyroid - left inferior, B- Parathyroid - left superior , C- Parathyroid - right inferior, D- Parathyroid - right superior FROZEN SECTION DIAGNOSIS A. Parathyroid, left inferior, excision: Parathyroid tissue, 0.706gm. B. Parathyroid, left superior, excision: Parathyroid tissue, 0.003gm. C. Parathyroid, right inferior, excision: Parathyroid tissue, 0.017 gm. D. Parathyroid, right superior, excision: Parathyroid tissue, 0.014gm. MS/mr 01/28/2025 MICROSCOPIC DIAGNOSIS A. Left inferior parathyroid gland, parathyroidectomies: - Enlarged and hypercellular parathyroid gland B. Left superior parathyroid gland: * Parathyroid gland C. Right inferior parathyroid gland: * Parathyroid gland D. Right superior parathyroid gland: * Parathyroid gland COMMENT The permanent sections confirm the frozen section findings. MICROSCOPIC DESCRIPTION Slides are reviewed. GROSS DESCRIPTION A. Received fresh for frozen section diagnosis labeled with the patient's name and date of . Designated as "parathyroid-left inferior" is a 0.706 g, 1.6 x 1.1 x 0.6 cm adams to light brown lobulated parathyroid gland. The specimen is bisected and entirely submitted for frozen section diagnosis and subsequently placed in cassette A1 for permanent sections. B. Received fresh for frozen section diagnosis labeled patient's name and date of . Designated as "left superior thyroid" is a 0.003 g, 0.3 x 0.2 x 0.1 cm red tissue fragment. Entirely submitted for frozen section diagnosis and subsequently placed in cassette B1 for permanent sections. C. Received fresh for frozen section diagnosis labeled the patient's name and date of . Designated as "right inferior parathyroid" is a 0.017 g, 0.4 x 0.3 x 0.2 cm adams to light brown lobulated apparent parathyroid gland. The specimen is entirely submitted for frozen section diagnosis and subsequently placed in cassette C1 for permanent sections. D. Received fresh for frozen section diagnosis labeled with the patient's name and date of . Designated as "right superior parathyroid" is a 0.014 g, 0.3 x 0.2 x 0.2 cm adams to light brown lobulated apparent parathyroid gland. Specimen is entirely submitted for frozen section diagnosis and subsequently placed in cassette D1 for permanent sections. MS 01/28/2025 CPT:[id number]
[2025-01-28] MEDS: Lidocaine 1% (5 ml sdv) 5 ML Vial IV (07:35)
[2025-01-28] MEDS: fentaNYL 100 MCG/2 ML Ampul 50 MCG IV (07:58)
[2025-01-28 08:43] LABS: PTHIN 220 pg/mL (11-61)
[2025-01-28 09:41] LABS: PTHIN 154 pg/mL (11-61)
[2025-01-28 09:42] LABS: PTHIN 120 pg/mL (11-61)
[2025-01-28 10:11] LABS: PTHIN 59 pg/mL (11-61)
[2025-01-28] MEDS: Lactated Ringers 3,000 ML 3000 ML IV (10:50)
[2025-01-28 11:07] LABS: PTHIN 38 pg/mL (11-61)
--- NOTE | 2025-01-28 11:25 | OP.PCM_ITS ---
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 Surgery/Procedure Performed: Parathyroidectomy with 4 gland exploration using intraoperative PTH monitoring, parathyroid biopsy, and intraoperative nerve monitoring solder sprayer: Yes Body Make Up Artist: Kirti Perez Tasks completed by under water assistant: Opening & closing and Retracting Type of Anesthesia: General/Supplemental RN Documented Start/Stop Times: Operation Date: 01/28/25 07:30 Case Time Into Pre-Op 01/28/25 05:56 Out of Pre-Op 01/28/25 07:26 Anesthesia Start 01/28/25 07:27 Into Room 01/28/25 07:27 Procedure Start 01/28/25 08:01 Procedure End 01/28/25 11:24 Anesthesia End 01/28/25 11:49 Out of Room 01/28/25 11:49 Into Recovery 01/28/25 11:50 Out of Recovery 01/28/25 13:43 Into Phase II Recovery 01/28/25 13:44 Out of Phase II 01/28/25 15:38 Procedure Start Time: 08:01 Procedure Stop Time: 11:24 Select all DRAINS/GRAFTS/IMPLANTS that apply: None Estimated Blood Loss: 15 Specimen collected: Yes Description of specimen(s) removed: 1. Left inferior parathyroid 2. Frozen section for left superior parathyroid 3. Frozen section for right inferior parathyroid 4. Frozen section for right superior parathyroid Description of surgery: After appropriate identification in the preoperative holding area the patient was brought to the operating room where she was positioned supine on the operating room table. There she was induced with general endotracheal anesthetic. Of note, a preoperative PTH had been obtained and was reported as 179 pg/mL. Patient was then intubated using a Nims tube and glide a scope to ensure coaptation between the vocal cords and the Nims tube electrodes. A resistance check confirmed appropriate function of the tube after the electrodes were properly connected to the monitoring box. Patient was then positioned in cervical extension, but adequately supporting the occiput. Ultrasound was used to locate the location of the target hypoechoic lesion in the left neck for incision planning and this area was marked with indelible ink. She was prepped and draped in the usual sterile fashion and a formal timeout followed to confirm patient and the procedure to be performed. A local block was produced with infiltration of local anesthetic and a 4cm transverse incision was made. This was deepened with the use of electrocautery through the platysma. Ultimately the strap muscles were exposed and were divided along their raphe with electrocautery. The strap muscles were from one another as I proceeded with dissection laterally towards the patient's [right\left] internal jugular vein. Once this structure was sufficiently exposed I obtained a baseline central vein PTH level. I then used blunt dissection to free the sternothyroid muscle from the thyroid capsule of the left thyroid lobe deeply. The central vein baseline PTH ultimately returned at 220. For the interim I continued dissection and elevated the inferior pole of the left thyroid lobe. There is a significant amount of fibrofatty tissue as well as superior extension of the thyroid thymic ligament into the field, however, there were no immediately clear parathyroid candidates. Dissection was thus carried slightly more lateral he was here in the inferior portion of the wound just deep to the left clavicle that I encountered a large parathyroid gland directly adjacent to the medial aspect of the carotid. Careful blunt dissection was employed to free the structure from its surrounding soft tissue attachments it was then circumferentially freed. This specimen was passed off the field for frozen section confirmation. (Later, pathology telephoned the room to notify us that indeed this represented a large parathyroid gland weighing 706 mg). As we awaited this result, I irrigated the surgical cavity with sterile water examined for hemostasis. Finding this intact, I also developed the plane between the thyroid capsule and the strap mus cles to try to identify the second parathyroid gland on this side. The tracheoesophageal groove was also developed bluntly and I confirmed an intact signal from our left recurrent laryngeal nerve using our Nims monitor. Left internal jugular ex vivo blood draws were made with a 22-gauge needle and syringe at 10 and 15 minutes were 154 and 120, respectively. Unfortunately this failed intraoperative PTH assay criteria drop so I obtained a small specimen of the patient's presumed left superior parathyroid gland and placed a titanium clip across this structure for later identification as well as to maintain hemostasis. Notably, the structure was rather diminutive in size and normal in appearance grossly. As I waited a frozen section confirmation I also opted to send an additional blood sample (representing over 30 minutes since the left inferior gland had been removed). I then proceeded to the contralateral side of the neck where I developed the tracheoesophageal groove. During my dissection on this right side I obtained report from pathology confirming the identification of the left superior parathyroid gland. I went on to identify grossly normal–appearing right inferior and right superior parathyroid glands, respectively. Biopsies were taken at each location to confirm their identity via frozen section. I also identified an intact and well-functioning (once again via Nims signal) right recurrent laryngeal nerve. With this observation I became convinced that patient simply had a delayed fall in their PTH after extirpation of the dominant adenoma and there was no gross evidence for either 4 gland hyperplasia or double adenoma. This conclusion was bolstered when I submitted a fourth and final PTH obtained from patient's left internal jugular vein that returned a value of 38 and then pathology also confirmed that we had, indeed, identified the parathyroid glands in the inferior and superior positions on the right. Satisfied with this result, the case was terminated and hemostasis was once again confirmed in the surgical bed. Then I performed closure of the neck in layers. The strap muscles were run with a 3-0 Vicryl suture to reapproximate the raphe, but a gap was left in the inferior most portion of the strap muscles. Then the platysmal layer was reapproximated with interrupted 3-0 Vicryl. Additional local anesthetic was instilled. The skin was closed using a running 4-0 Monocryl in a subcuticular fashion. Steri-Strips and Telfa OpSite was applied as a dressing. Patient was then awoken from general anesthetic and taken to PACU for ongoing recovery. Surgical Findings: Left inferior parathyroid adenoma weighing 706 mg, left superior, right inferior, and right superior parathyroid sent for frozen section confirmed with pathology Parathyroid trend going from central PTH baseline to 20. Ex vivo at 10 minutes: 154, ex vivo at 15 minutes: 120, delayed PTH #1: 59, delayed PTH #2: 38. Complications Complications: No Admit VTE Documentation VTE Mechan Device Prophylaxis: SCD's
--- NOTE | 2025-01-28 11:27 | EX.PCM.DISCH ---
Discharge Instructions Diet Discharge Diet: No restrictions (However recommend a liquid to soft diet initially postoperatively) Activity Discharge Activity: May Not Drive (While it remains difficult to check blind spots quickly) May shower in (days): 2 Ice area for (Minutes): 20 Lifting Restrictions: No lifting greater than 15 pounds for 2 weeks after surgery Dressing / Incision Call your doctor if your incision/area has: Continuous Slow Oozing, Sudden Increased Bleeding, Increased Pain/ Swelling, Increased Redness and Swelling at the incision site Call your doctor if you observe: Numbness or Tingling Remove Dressing in: 2 days (Please leave Steri-Strips intact until they fall off spontaneously or are taken off at your follow-up visit) Cleanse incision/area with: Soap & Water Follow Up Care Please Follow Up With: Osbaldo Frye MD When: 10-14 days postop Test Results: Test results from this visit will be discussed in further detail at your follow-up appointment, if applicable. Discharge Plan Admission Primary Reason for Your Visit: Hyperparathyroidism Attending Provider: Osbaldo Frye Primary Care Provider: Angely Montoya Instructions Additional Instructions / Restrictions: Please take 1 tablet of Tums if experiencing numbness or tingling about the mouth or fingertips and notify Dr. Frye's office Print Language: Citizen Of [place] Discharge Orders/Prescriptions Prescriptions: Continued sulfurzyme 2 cap PO DAILY multivitamin Tablet 1 tab PO QAM redox 2 oz PO TID young living ninja red 2 oz PO DAILY 717 2 cap PO DAILY Referrals / Follow Up: Angely Montoya MD [Primary Care Provider, Family Practice] Disposition Disposition (needs filled in before D/C Order can be placed): Home, Self Care
--- NOTE | 2025-01-28 11:55 | PCM.POST.ANE ---
Anesthesia: Postop Eval I Current Vital Signs Temperature: 97.4 F Pulse Rate: 68 Blood Pressure: 156/86 Respiratory Rate: 16 Pulse Ox: 96 Oxygen Delivery Method: Room Air Assessment Airway patent: Yes Spontaneous unlabored respirations: Yes Mental status: Awake and Calm nausea: No Vomiting: No Anesthesia Complication: No Fluid Hydration Crystalloid volume administer (ml): 2,300 Total IV fluid infused: 2,300 Progress Note Anesthesia document: Postop Eval 1 completed: Yes
[2025-01-28 13:22] LABS: PTHIN 20 pg/mL (11-61)
--- NOTE | 2025-01-28 16:31 | POSTOPAN2_ITS ---
Anesthesia Postop Eval I Sum Postop Eval Completion status Anesthesia document: Postop Eval 1 completed: Yes Anesthesia Postop Eval I Summary Anesthesia Postop Eval I Summary: Anesthesia Postop Eval I: Assessment Summary Airway patent Yes 01/28/25 11:56 [email or web address] [email or web address] Spontaneous unlabored Yes 01/28/25 11:56 CABLE TOOL [email or web address] respirations Mental status Awake,Calm 01/28/25 11:56 [email or web address] nausea No 01/28/25 11:56 [email or web address] TOOL [email or web address] Vomiting No 01/28/25 11:56 [email or web address] Anesthesia Postop Eval I: Fluid Summary Crystalloid volume administer 2,300 01/28/25 11:56 [email or web address] (ml) Colloids volume administered ( ml) Blood Product volume administered (ml) Total IV fluid infused 2,300 01/28/25 11:56 [email or web address] Anesthesia Postop Eval I: Summary Notes Anesthesia Complication No 01/28/25 11:56 [email or web address] Anesthesia Complication Comment: Post-operative progress note Anesthesia: Postop Eval II Evaluation Mental status: Awake Pain Level: 0 nausea: No Vomiting: No Complications Anesthesia Complication: No
--- NOTE | 2025-01-28 16:31 | PCM.POSTANE2 ---
Anesthesia Postop Eval I Sum Postop Eval Completion status Anesthesia document: Postop Eval 1 completed: Yes Anesthesia Postop Eval I Summary Anesthesia Postop Eval I Summary: Anesthesia Postop Eval I: Assessment Summary Airway patent Yes 01/28/25 11:56 SERVICES [email or web address] Spontaneous unlabored Yes 01/28/25 11:56 SERVICES [email or web address] respirations Mental status Awake,Calm 01/28/25 11:56 SERVICES [email or web address] nausea No 01/28/25 11:56 SERVICES [email or web address] Vomiting No 01/28/25 11:56 SERVICES [email or web address] Anesthesia Postop Eval I: Fluid Summary Crystalloid volume administer 2,300 01/28/25 11:56 SERVICES [email or web address] (ml) Colloids volume administered ( ml) Blood Product volume administered (ml) Total IV fluid infused 2,300 01/28/25 11:56 SERVICES [email or web address] Anesthesia Postop Eval I: Summary Notes Anesthesia Complication No 01/28/25 11:56 SERVICES [email or web address] Anesthesia Complication Comment: Post-operative progress note Anesthesia: Postop Eval II Evaluation Mental status: Awake Pain Level: 0 nausea: No Vomiting: No Complications Anesthesia Complication: No
== END 2025-01-28 15:39 | disposition home or self-care (01) ==
LOC: SDC 05:49 → AC 05:50
PROVIDERS: PCP Student in an Organized Health Care Education/Training Program; Referring Provider Surgery; Visit Provider Surgery
DX: E21.0 Primary hyperparathyroidism (principal); D35.1 Benign neoplasm of parathyroid gland
CPT/HCPCS: 60500; 00320; 83970; 88305; 88331; 88332; A4648; J2405

== ENCOUNTER → 2025-02-10 | Outpatient (CLI) | payer OTHER, SELFPAY ==
[2025-02-10 12:00] LABS: Calcium 9.4 mg/dL (7.6-11.0)
[2025-02-10 12:12] LABS: PTHIN 76 pg/mL (11-61)
== END | disposition home or self-care (01) ==
PROVIDERS: PCP Student in an Organized Health Care Education/Training Program; Referring Provider Surgery; Visit Provider Surgery
DX: Z90.89 Acquired absence of other organs (principal); Z98.890 Other specified postprocedural states
CPT/HCPCS: 36415; 82310; 83970